=== PATIENT | female | born 1950 | race Caucasian/White ===

== ENCOUNTER 2023-09-21 14:29 | Emergency (ER) | payer MEDICARE, MEDICAID, SELFPAY ==
[2023-09-21] VITALS (7 sets, daily range): BP systolic 135–159; BP diastolic 61–80; PULSE 84–89; RESP 16–23; TEMP 36.6–36.9; O2SAT 96–99; BMI 38.0
--- NOTE | 2023-09-21 15:27 | EDS_ITS ---
HPI HPI - Female History of Present Illness Chief Complaint: Complaint Narrative Narrative: 72-year-old female presenting from [facility] with concern for UTI. Patient is a poor informant but her sister gives extensive history. She states she has had UTIs in the past. She has a suprapubic catheter. She states that typically if she gets urinary tract infection she stopped eating and gets confused but she has not noted any of this. Patient's sister also states that she has a long history of mental health issues and has been suicidal in the past. She is on aripiprazole and she has been stable. Patient's sister states that the [facility] noted she was confused but her sister states that she is at baseline. She states that she gets her suprapubic catheter changed regularly. She states that the last urinalysis showed some bacteria but she does not know all the results. [facility] Medical History SOB (shortness of breath) Stage 3 chronic kidney disease Chronic UTI Hypertension Home Medications ?Medication ?Instructions ?Recorded ?Last Taken ?Type amlodipine 5 mg tablet PO 12/06/19 Unknown History aripiprazole 5 mg tablet mg PO 12/06/19 Unknown History bupropion HCl 300 mg 24 hr tablet, mg PO 12/06/19 Unknown History extended release calcium carbonate ea PO 12/06/19 Unknown History cholecalciferol (vitamin D3) 25 PO 12/06/19 Unknown History mcg (1,000 unit) tablet conjugated estrogens 1.25 mg tablet mg PO 12/06/19 Unknown History duloxetine 60 mg capsule,delayed mg PO 12/06/19 Unknown History release lorazepam 0.5 mg tablet 0.25 mg PO 12/06/19 Unknown History medroxyprogesterone 10 mg tablet mg PO 12/06/19 Unknown History sodium bicarbonate 325 mg tablet ea PO 12/06/19 Unknown History trazodone 300 mg tablet 300 mg PO 12/06/19 Unknown History ciprofloxacin HCl 500 mg tablet 500 mg PO BID #10 tabs 09/21/23 Unknown Rx (Cipro) Allergy/AdvReac Type Severity Reaction Status Date / Time latex AdvReac rash Verified 09/21/23 14:38 Family History no significant family his Social History Smoking Status: Never smoker ROS ROS ED Constitutional Constitutional ED: Denies chills, fever(s) or sweats Eyes Eyes: Denies blurry vision or change in vision ENT ENT ED: Denies ear pain or sore throat Cardiovascular Cardiovascular: Denies chest pain, palpitations or racing heartbeat Respiratory/Chest Respiratory/Chest: Denies cough, dyspnea or sputum Gastrointestinal Gastrointestinal: Denies abdominal pain, constipation, diarrhea, nausea or vomiting Genitourinary Genitourinary ED: Denies dysuria, hematuria or urinary frequency Musculoskeletal Musculoskeletal: Denies arthralgias, myalgias or neck pain Integumentary Denies abscess, Abrasions or rash Neurologic Neurologic: Denies headache(s), paresthesias or weakness Psychiatric Psychiatric: Denies anxiety, depression, suicidal ideation or suicidal thoughts Endocrine Endocrinology: Denies polydipsia or polyuria EXAM Physical Exam Const Vital Signs: 09/21/23 14:30 09/21/23 15:33 09/21/23 16:00 Temperature 98.4 F 98 F 98.2 F Temperature Source Oral Temporal Temporal Pulse Rate 84 88 89 Respiratory Rate 16 19 H 18 Blood Pressure 152/80 H 159/79 H 159/68 H Blood Pressure Mean 104 105 98 Pulse Ox 98 98 98 Oxygen Delivery Method Room Air Room Air Room Air 09/21/23 16:30 Temperature Temperature Source Pulse Rate 89 Respiratory Rate 23 H Blood Pressure 148/71 H Blood Pressure Mean 96 Pulse Ox 98 Oxygen Delivery Method Room Air General Appearance ED: Negative for pallor HEENT Reports normocephalic Eyes PERRL and EOMs intact bilaterally Neck no lymphadenopathy and supple Resp normal respiratory effort and clear to auscultation bilaterally Auscultation: Negative for rales, rhonchi or wheezes Cardio regular rate and regular rhythm GI normal to inspection, nondistended, normoactive bowel sounds and non-distended Auscultation: normoactive bowel sounds Palpation: soft Narrative: Deferred Back/Spine no CVA tenderness Extremity normal to inspection General Extremety ED: Negative for edema or tenderness General Extremity: Negative for edema Neuro CN's II-XII intact bilaterally Sensorium / Orientation: alert Motor Exam: strength 5/5 throughout Psych mental status grossly normal Attitude: No agitated Skin no rashes or lesions noted and no wounds General Skin Exam: Negative for jaundice or pallor MDM MDM MDM Narrative Medical decision making narrative: Patient presenting with her sister for concern for UTI. Her sister states that she is at her baseline mentation. [facility] was more concerned and her sister. Vital signs stable and she is afebrile. Urinalysis was obtained and shows 100 leukocyte esterase, 2+ bacteria 3-5 white blood cells. I will send this for culture and patient will be started on Cipro. Discharged stable condition. Impression 1. UTI Lab Data Attestation: I reviewed the patient's lab results. Labs: Laboratory Results - last 24 hr 09/21/23 15:29 Urine Color Yellow Urine Clarity Sl. Cloudy Urine pH 7.0 Ur Specific [place] 1.005 Urine Protein Negative Urine Glucose (UA) Normal Urine Ketones Negative Urine Occult Blood 150 H Urine Nitrite Negative Urine Bilirubin Negative Urine Urobilinogen Normal Ur Leukocyte Esterase 100 H Urine RBC 0-5 SEEN Urine WBC 0-5 SEEN Ur Squamous Epith Cells 0 SEEN Urine Bacteria 2+ Urine Mucus 0 SEEN Discharge Plan Triage Chief Complaint: Complaint ED Provider: Adria Foote Dx/Rx/DC Orders Instructions: ED Cystitis Female Adult Prescriptions: New ciprofloxacin HCl [Cipro] 500 mg tablet 500 mg PO BID Qty: 10 0RF No Action duloxetine 60 mg capsule,delayed release(DR/EC) PO bupropion HCl 300 mg tablet extended release 24 hr PO aripiprazole 5 mg tablet PO conjugated estrogens 1.25 mg tablet PO amlodipine 5 mg tablet PO medroxyprogesterone 10 mg tablet PO lorazepam 0.5 mg tablet 0.25 mg PO Patient Comments: TAKE 1 TABLET BY MOUTH TWICE A DAY calcium carbonate 500 mg calcium (1,250 mg) tablet PO Patient Comments: TAKE 1 TABLET BY MOUTH EVERY MORNING cholecalciferol (vitamin D3) 25 mcg (1,000 unit) tablet PO trazodone 300 mg tablet 300 mg PO sodium bicarbonate 325 mg tablet PO Patient Comments: TAKE 1 TABLET BY MOUTH EVERY 12 HOURS Primary Care Provider: Wang Díaz Referrals: Wang Díaz MD [Primary Care Provider] - Print Language: Sammarinese Disposition Disposition: Home, Self Care
[2023-09-21 15:39] LABS: Mucous, Urine 0 SEEN /hpf (<or=2+); Squamous Epithelial Cells - UA 0 SEEN /hpf (5-10)
[2023-09-21 15:46] LABS: Color, Urine Yellow (Yellow); Glucose, Dipstick Normal (Normal); Ketone-Dipstick Negative (Negative); Leukocyte Esterase-Dipstick 100 /ul (Negative); Nitrite-Dipstick Negative (Negative); Occult Blood-Urine 150 /ul (Negative); Protein-Dipstick Negative (Negative); Specific Gravity, Urine 1.005 (1.002-1.030); Urine Bilirubin Dipstick Negative (Negative); Urine Clarity Sl. Cloudy (Clear); Urine Urobilinogen Normal (Normal)
[2023-09-21 15:56] LABS: Bacteria 2+ /hpf (None Seen); Red Blood Cells-Urine 0-5 SEEN /hpf (0-5); White Blood Cells 0-5 SEEN /hpf (0-5)
[2023-09-21] MEDS: Ciprofloxacin 500 MG Tablet PO (18:44)
[2023-09-21] MEDS: oxyCODONE 5 MG Tablet 10 MG PO (18:44)
== END 2023-09-21 21:15 | disposition home or self-care (01) ==
PROVIDERS: Emergency Provider Student in an Organized Health Care Education/Training Program; PCP Family Medicine; Visit Provider Student in an Organized Health Care Education/Training Program
DX: N39.0 Urinary tract infection, site not specified (principal); N18.30 Chronic kidney disease, stage 3 unspecified; I12.9 Hypertensive chronic kidney disease with stage 1 through stage 4 chronic kidney disease, or unspecified chronic kidney disease; Z87.440 Personal history of urinary (tract) infections
CPT/HCPCS: 81001; 99282

== ENCOUNTER 2024-06-04 10:00 | Inpatient (IN) | payer MEDICARE, MEDICAID, SELFPAY ==
[2024-06-04] VITALS (14 sets, daily range): BP systolic 128–143; BP diastolic 45–60; PULSE 90–95; RESP 14–27; TEMP 36.3–37.1; O2SAT 89–98; BMI 43.7; BMI 41.5
--- NOTE | 2024-06-04 10:14 | EKG12_ITS ---
Test Reason : Blood Pressure : */* mmHG Vent. Rate : 93 BPM Atrial Rate : 93 BPM P-R Int : 138 ms QRS Dur : 90 ms QT Int : 378 ms P-R-T Axes : 53 64 51 degrees QTcB Int : 469 ms Normal sinus rhythm Nonspecific T wave abnormality Abnormal ECG Confirmed by AISHWARYA LAM, DEX ([id number]), graphics editor CHRISTIANA GUTIERREZ ([id number]) on 06/05/2024 8:35:50 AM Referred By: Confirmed By: DEX NEFF MD
--- NOTE | 2024-06-04 10:27 | EX.ED.DYSGE1 ---
HPI History of Present Illness Chief Complaint: Nausea/Vomiting Informant: patient, EMS and SNF Narrative Narrative: 73-year-old female from nursing facility presenting with a report of vomiting and fever. Patient states that she has been sick since last week but cannot tell me in what way she has been sick. half-way reports vomiting as well as a fever this morning. She states that she was not given anything for the fever. Did not have a fever upon arrival here in the emergency department. Patient states that she has had a cough. She has chronic indwelling Cifuentes and sees Dr. Haley in [place] for urology. She states that she typically utilizes a wheelchair is a 1-2 person assist. She denies any diarrhea. However she cannot tell me when her last bowel movement was. She tells me that she does not typically wear oxygen. She was noted to be 89% on room air per nursing. [facility] Medical History History of falling Anxiety disorder, unspecified Bipolar disorder, current episode manic without psychotic features, unspecified Major depressive disorder, single episode, mild Neuromuscular dysfunction of bladder, unspecified Noninfective gastroenteritis and colitis, unspecified Osteoarthritis of knee, unspecified Secondary hyperparathyroidism of renal origin Vitamin D deficiency, unspecified Localized edema Chronic kidney disease, stage 3b SOB (shortness of breath) Stage 3 chronic kidney disease Chronic UTI Hypertension Home Medications ?Medication ?Instructions ?Recorded ?Last Taken ?Type amlodipine 5 mg tablet 5 mg PO DAILY HYPERTENSION 12/06/19 Unknown History aripiprazole 5 mg tablet 5 mg PO DAILY BIPOLAR 12/06/19 Unknown History bupropion HCl 300 mg 24 hr tablet, 300 mg PO DAILY DEPRESSION 12/06/19 Unknown History extended release cholecalciferol (vitamin D3) 25 25 mcg PO DAILY SUPPLEMENT 12/06/19 Unknown History mcg (1,000 unit) tablet lorazepam 0.5 mg tablet 0.5 mg PO BID 12/06/19 Unknown History medroxyprogesterone 10 mg tablet 10 mg PO DAILY 12/06/19 Unknown History sodium bicarbonate 325 mg tablet 325 mg PO DAILY SUPPLEMENT 12/06/19 Unknown History acetaminophen 500 mg tablet 1,000 mg PO Q6H PRN PAIN 1-5 06/04/24 Unknown History benzonatate 100 mg capsule 100 mg PO TID 06/04/24 Unknown History bisacodyl 10 mg rectal suppository 10 mg LA DAILY PRN constipation 06/04/24 Unknown History buprenorphine 7.5 mcg/hour weekly 1 patch topical MO 06/04/24 Unknown History transdermal patch calcium 500 mg (as 2 tab PO DAILY 06/04/24 Unknown History carbonate)-vitamin D3 5 mcg (200 unit) tablet (Oyster Shell Calcium-Vitamin D3) carbamide peroxide 6.5 % ear drops 5 drp EACH EAR DAILY PRN EAR WAX 06/04/24 Unknown History (Clearcanal Earwax Softener) BUILD UP cranberry fruit 450 mg tablet 450 mg PO DAILY SUPPLEMENT 06/04/24 Unknown History (cranberry) duloxetine 20 mg capsule,delayed 20 mg PO DAILY 06/04/24 Unknown History release famotidine 40 mg tablet 40 mg PO DAILY 06/04/24 Unknown History hydrocortisone 1 % topical cream 1 applic topical BID PRN BILATERAL 06/04/24 Unknown History (Ala-Dima) KNEE PAIN magnesium hydroxide 400 mg/5 mL 30 ml PO DAILY PRN constipation 06/04/24 Unknown History oral suspension (Dulcolax (magnesium hydroxide)) mineral oil (Fleet Mineral Oil 118 ml LA DAILY PRN constipation 06/04/24 Unknown History enema) nystatin 100,000 unit/gram topical 1 applic topical TID SKIN 06/04/24 Unknown History cream IRRITATION nystatin 100,000 unit/gram topical 1 applic topical TID SKIN 06/04/24 Unknown History powder (Nyamyc) IRRITATION oxycodone 10 mg tablet 10 mg PO Q6H PRN moderate TO 06/04/24 Unknown History SEVERE pain polyethylene glycol 3350 17 17 g PO DAILY PRN constipation 06/04/24 Unknown History gram/dose oral powder (ClearLax) trazodone 50 mg tablet 75 mg PO DAILY MAJOR DEPRESSIVE 06/04/24 Unknown History DISORDER Allergy/AdvReac Type Severity Reaction Status Date / Time latex AdvReac rash Verified 06/04/24 10:08 Social History Smoking Status: Never smoker ROS ROS ED Constitutional Constitutional ED: Reports chills and fever(s); Denies weight loss Eyes Eyes: Denies change in vision or diplopia ENT ENT ED: Denies ear pain, rhinorrhea or sore throat Cardiovascular Cardiovascular: Denies chest pain, orthopnea, palpitations or racing heartbeat Respiratory/Chest Respiratory/Chest: Reports cough; Denies dyspnea or orthopnea Gastrointestinal Gastrointestinal: Reports nausea and vomiting; Denies abdominal pain or diarrhea Genitourinary Genitourinary ED: Denies dysuria, hematuria or urinary frequency Musculoskeletal Musculoskeletal: Denies arthralgias, back pain, myalgias or neck pain Integumentary Denies abscess or rash Neurologic Neurologic: Denies headache(s) or weakness Psychiatric Psychiatric: Denies anxiety, depression, suicidal ideation or suicidal thoughts Endocrine Endocrinology: Denies polydipsia, polyphagia or polyuria Allergic/Immunologic Allergic/Immunologic ED: Denies mouth swelling, tongue swelling or urticaria EXAM Physical Exam Const Vital Signs: 06/04/24 10:00 06/04/24 10:00 06/04/24 10:05 Temperature 98.7 F 98.7 F Temperature Source Oral Oral Pulse Rate 95 95 Respiratory Rate 27 H 27 H Respiratory Pattern Blood Pressure 143/60 H 143/60 H Blood Pressure Mean 87 87 Pulse Ox 89 93 89 Oxygen Delivery Method Room Air Nasal Cannula Room Air Oxygen Flow Rate (L/min) 3 06/04/24 10:13 06/04/24 10:14 06/04/24 11:05 Temperature 98.1 F Temperature Source Oral Pulse Rate 94 Respiratory Rate 14 Respiratory Pattern Tachypnea Blood Pressure 137/59 H Blood Pressure Mean 85 Pulse Ox 93 92 Oxygen Delivery Method Nasal Cannula Nasal Cannula Oxygen Flow Rate (L/min) 2 2 06/04/24 11:20 06/04/24 11:20 06/04/24 12:05 Temperature 98.2 F Temperature Source Oral Pulse Rate 90 94 Respiratory Rate 14 19 H Respiratory Pattern Blood Pressure 128/47 H Blood Pressure Mean 74 Pulse Ox 95 89 Oxygen Delivery Method Nasal Cannula Nasal Cannula Oxygen Flow Rate (L/min) 2 3 06/04/24 12:59 06/04/24 13:00 Temperature 98.2 F Temperature Source Oral Pulse Rate 95 Respiratory Rate 17 Respiratory Pattern Blood Pressure 135/45 H Blood Pressure Mean 75 Pulse Ox 94 94 Oxygen Delivery Method Nasal Cannula Nasal Cannula Oxygen Flow Rate (L/min) 4 2 Positive well nourished, well developed and obese General Appearance ED: well developed and NAD Nutritional Appearance: obese HEENT Reports normocephalic, head/scalp atraumatic and moist mucous membranes Eyes PERRL and EOMs intact bilaterally Neck no lymphadenopathy, supple and no JVD Resp normal respiratory effort Resp Narrative: Rhonchorous cough Auscultation: rhonchi lower bilaterally Cardio regular rate, regular rhythm and no murmurs GI normal to inspection, nondistended, normoactive bowel sounds and non-tender Palpation: soft Narrative: There is a chronic indwelling Cifuentes. There is significant sediment along the tubing and in the back. Back/Spine no CVA tenderness and normal ROM Extremity General Extremety ED: Yes edema General Extremity: edema Neuro oriented x3 and CN's II-XII intact bilaterally Sensorium / Orientation: alert Motor Exam: strength 5/5 throughout Psych mental status grossly normal Mood & Affect: Negative for depressed or tearful Skin no rashes or lesions noted and no wounds Sepsis Attestation Sepsis Alert: Yes Sepsis Attestation: Sepsis Ruled Out MDM MDM MDM Narrative Medical decision making narrative: Differential diagnosis includes but not limited to pneumonia viral syndrome congestive heart failure oral effusion sepsis hypoxia dehydration electrolyte imbalance acute kidney injury Patient's white count is elevated 27.9 hemoglobin 13.7 platelet count of 269. INR is 1.2 patient's creatinine 1.28 glucose 128 lactic acid normal at 1.4 total bilirubin 1.34 otherwise normal LFTs troponin T is 20 urinalysis 10-25 squamous cells 50-100 white cells 3+ bacteria 3+ amorphous sediment Nitrate positive. Patient received supplemental oxygen blood and urine cultures were sent. She is influenza A positive. She received IV fluids as well as a breathing treatment and Rocephin and azithromycin were also administered. My independent interpretation of the chest x-ray is right sided infiltrate. This was read by radiology as a possible cavitary lesion. CTA of the chest was obtained which does not demonstrate an obvious pulmonary embolism but large right-sided infiltrate was noted as well as a lesion in the right midlung. Urinary strep pneumo antigen is positive. Plan of care will be discussed the case with the hospitalist for admission. History & Record Review Discussion w/independent historian: Patient Additional record(s) reviewed:: Prior labs Lab Data Attestation: I reviewed the patient's lab results. Labs: Laboratory Results - last 24 hr 06/04/24 06/04/24 06/04/24 10:20 10:50 12:49 WBC 27.9 H RBC 4.41 Hgb 13.7 Hct 40.3 MCV 91.4 MCH 31.1 MCHC 34.0 RDW Std Deviation 48.1 H RDW Coeff of Ge 14.2 Plt Count 269 MPV 9.5 Immature Gran % (Auto) 3.500 H Neut % (Auto) 89.3 H Lymph % (Auto) 4.5 L [place] % (Auto) 1.8 Eos % (Auto) 0.4 Baso % (Auto) 0.5 Absolute Neuts (auto) 24.9 H Absolute Lymphs (auto) 1.26 Nucleated RBC % 0 Differential Comment COMMENT PT 15.5 H INR 1.2 APTT 25.9 Sodium 136 Potassium 3.7 Chloride 104 Carbon Dioxide 20.4 L Anion Gap 12 BUN 13 Creatinine 1.28 H Estim Creat Clear Calc 46.70 L Est GFR (MDRD) Non-Af 45 L BUN/Creatinine Ratio 9.8 L Glucose 128 H Lactic Acid 1.4 Calcium 9.0 Total Bilirubin 1.34 H AST 25 ALT 13 Alkaline Phosphatase 99 Troponin T High Sens 20 H Troponin T Hi Sens 2 Hr 19 H Total Protein 7.3 Albumin 3.6 Globulin 3.7 Albumin/Globulin Ratio 1.0 Urine Color Yellow Urine Clarity Turbid Urine pH 9.0 Ur Specific [place] 1.015 Urine Protein 100 H Urine Glucose (UA) Normal Urine Ketones Negative Urine Occult Blood 50 H Urine Nitrite Positive H Urine Bilirubin Negative Urine Urobilinogen 1 H Ur Leukocyte Esterase 500 H Urine RBC 0 SEEN Urine WBC 50-100 SEEN Ur Squamous Epith Cells 10-25 SEEN Triple Phos Crystals 2+ Amorphous Sediment 3+ Urine Bacteria 3+ Urine Mucus 0 SEEN Radiography Diagnostic Testing: Clinical Impression(s) from Imaging Studies Chest X-Ray 06/04/24 10:50 IMPRESSION: Cavitary lesion in the right mid lung. Reading Location: [facility] Chest CTA 06/04/24 11:39 IMPRESSION: Large right lower lobe pneumonia is smaller satellite lesion in the right midlung Reading Location: [facility] EKG Initial EKG: Attestation: I personally reviewed and interpreted this EKG as follows: Comments: Normal sinus rhythm ventricular rate of 93 bpm Management Discussion w/another healthcare provider: Hospitalist (Dr Muniz) Discharge Plan Dx/Rx/DC Orders Clinical Impression: Pneumonia, Acute hypoxemic respiratory failure, Influenza A, Pulmonary lesion, right Disposition Disposition: Acute Care Hospital [facility]
[2024-06-04 10:35] LABS: Absolute Lymphocyte Count 1.26 X10^3/uL (0.83-4.51); Absolute Neutrophil Count 24.9 X10^3/uL (2.0-7.7); Basophil# 0.14 X10^3/uL; Basophil% 0.5 % (0-1); Eosinophil# 0.12 X10^3/uL; Eosinophils% 0.4 % (0-5); Hematocrit 40.3 % (37-47); Hemoglobin 13.7 g/dL (12.0-15.0); Lymphocyte # 1.26 X10^3/ul (0.83-4.51); Lymphocyte % 4.5 % (19-41); Mean Corpuscular Hgb 31.1 pg (27.0-32.0); Mean Corpuscular Volume 91.4 fL (81-99); Mean Platelet Vol. 9.5 fl (6.2-12.0); Monocyte# 0.51 X10^3/uL; Monocyte% 1.8 % (0-10); NRBC Flagged by Analyzer 0 % (0-5); Neutrophil # 24.86 X10^3/uL (2.7-7.7); Neutrophil % 89.3 % (47-70); POSITIVE DIFFERENTIAL YES; POSITIVE MORPHOLOGY YES; Platelet Count 269 K/mm3 (150-450); RBC Distribution Width CV 14.2 % (11.6-14.6); RBC Distribution Width SD 48.1 fl (35.1-43.9); Red Blood Count 4.41 M/mm3 (4.2-5.4); White Blood Count 27.9 K/mm3 (4.4-11.0)
[2024-06-04] MEDS: 0.9% Normal Saline (1000mL) 1,000 ML 999 ML IV (10:40)
[2024-06-04] MEDS: 0.9% Normal Saline (1000mL) 1,000 ML 150 ML IV (10:40)
[2024-06-04 10:42] LABS: Differential Indicated SCAN CRITERIA MET
--- NOTE | 2024-06-04 10:50 | RAD_ITS ---
PROCEDURE: CHEST 1 VIEW (PORTABLE) 06/04/2024 REASON FOR EXAM: FEVER AND COUGH TECHNIQUE: Frontal view of the chest. COMPARISON: None FINDINGS: Hardware: None Heart: Normal heart size Lungs: Focal airspace consolidation seen. Looks like a cavitary cystic lesion is present in the right mid lung differential diagnostic possibilities include bronchogenic cancer, lymphoma, metastasis, the types of infectious processes and abscesses, mycobacterial, fungus and parasites. Bones: Unremarkable Other: RAD/Chest 1 View (Portable) IMPRESSION: Cavitary lesion in the right mid lung. Reading [facility]
[2024-06-04 11:11] LABS: Mucous, Urine 0 SEEN /hpf (<or=2+); Red Blood Cells-Urine 0 SEEN /hpf (0-5)
[2024-06-04 11:16] LABS: Color, Urine Yellow (Yellow); Glucose, Dipstick Normal (Normal); Ketone-Dipstick Negative (Negative); Leukocyte Esterase-Dipstick 500 /ul (Negative); Nitrite-Dipstick Positive (Negative); Occult Blood-Urine 50 /ul (Negative); Protein-Dipstick 100 mg/dl (Negative); Specific Gravity, Urine 1.015 (1.002-1.030); Urine Bilirubin Dipstick Negative (Negative); Urine Clarity Turbid (Clear); Urine Urobilinogen 1 mg/dl (Normal)
[2024-06-04 11:20] LABS: Lactic Acid 1.4 mmol/L (0.0-2.0)
[2024-06-04 11:21] LABS: AST(SGOT) 25 U/L (<=31); Alanine Aminotransfer ALT/SGPT 13 U/L (<=34); Albumin, Serum 3.6 g/dL (3.4-4.8); Alkaline Phosphatase 99 U/L (35-104); Anion Gap 12 (5-15); BUN 13 mg/dL (4-19); BUN/Creat Ratio 9.8 RATIO (10-20); Carbon Dioxide 20.4 mmol/L (21.0-32.0); Chloride 104 mmol/L (98-108); Creatinine, Serum 1.28 mg/dL (0.70-1.20); EST Glomerular Filtration Rate 45 (>60); Globulin 3.7 g/dL (2.2-4.2); Glucose 128 mg/dL (70-99); Potassium 3.7 mmol/L (3.3-5.1); Protein, Total 7.3 g/dL (5.9-8.4); Sodium Level 136 mmol/L (133-145); Total Bilirubin 1.34 mg/dL (0.00-1.30); Troponin T High Sensitivity 20 ng/L (<=14)
[2024-06-04 11:26] LABS: International Normalized Ratio 1.2; Prothrombin Time (Protime)PT. 15.5 SECONDS (11.7-14.9)
[2024-06-04 11:28] LABS: Bacteria 3+ /hpf (None Seen); White Blood Cells 50-100 SEEN /hpf (0-5)
[2024-06-04 11:28] LABS: Partial Thromboplast Time 25.9 Seconds (24.1-36.2)
[2024-06-04 11:30] LABS: Squamous Epithelial Cells - UA 10-25 SEEN /hpf (5-10); Triple Phosphate Crystals Ur 2+ /hpf (<or=1+)
[2024-06-04 11:31] LABS: Amorphous Sediment 3+
[2024-06-04] MEDS: Ipratropium/Albuterol Sulfate 3 ML AMPUL.NEB INHALATION ×3 (11:34→23:50)
--- NOTE | 2024-06-04 11:39 | CT_ITS ---
PROCEDURE: CTA CHEST W/WO CONTRAST 06/04/2024 REASON FOR EXAM: PULMONARY EMBOLISM/CAVITARY LESION (R) TECHNIQUE: CTA imaging of the abdomen and pelvis with intravenous contrast. Coronal and Sagittal reconstruction series were provided. 3D, 3D post processing, 3D reconstructions, Maximum intensity projection (MIPs) Volume rendering and Shaded surface rendering was provided. CONTRAST: Isovue 370 VOLUME: 100mL IV One or more dose reduction techniques were used (e.g., Automated exposure control, adjustment of the mA and/or kV according to patient size, use of iterative reconstruction technique). RADIATION DOSE SUMMARY: CTDlvol: 10.29 mGy DLP: 441.60 mGycm COMPARISON: Chest radiograph 06/05/2019 FINDINGS: Large right lower lobe consolidating pneumonia with smaller satellite mid right lung extension. The pattern of airspace disease does not suggest a cavitary lesion which may have been suggested on the plain radiograph Heart and great vessels are unremarkable. No PE. No pleural effusion. No pneumothorax. Other Findings: Partially imaged upper abdominal structures demonstrate no acute pathology CT/CTA Chest W/WO Contrast IMPRESSION: Large right lower lobe pneumonia is smaller satellite lesion in the right midlu ng Reading Location[facility]
[2024-06-04] MEDS: Azithromycin 500 MG in 0.9% Normal Saline (250mL Bag) 250 ML 255 MG IV (11:45)
[2024-06-04 13:22] LABS: Troponin T High Sens 2 HR 19 ng/L (<=14)
[2024-06-04] MEDS: Ceftriaxone 1 GM/50 ML BAG IV (13:42)
--- NOTE | 2024-06-04 13:43 | HP.PCM.HOS_ITS ---
HPI - General General Date of Admission: 06/04/24 Date of Service: 06/04/24 Chief Complaint: N/V/fever HPI Narrative YENI BROOKS, is a 73 y/o F with a history of anxiety, bipolar disorder, chronic indwelling Cifuentes catheter who presented [facility] ED from long-term 06/04/2024 for vomiting and fever. This past week patient has not been feeling well but per long-term this morning she vomited and had a fever 101 prompting them to bring her to the ED. In the ED patient was 89% and started on 2 L O2 and did reports she has been having a cough. Patient afebrile in the ED with blood pressure stable, respiratory rate initially 27. CTA showed large right lower lobe pneumonia with a smaller satellite lesion in the right midlung. UA also appeared potentially infectious and will consult count 27.9. Patient given IV fluids, Rocephin, azithromycin, and a DuoNeb and hospitalist contacted for admission. Patient evaluated bedside. She is a somewhat poor historian but does report a history of fever today and had nausea and then vomiting after breakfast. Reports shortness of breath and cough for a while but does noted that worse recently though cannot say exactly when. When asked if she had abdominal pain or chest pain she said yes but cannot further characterize that and had some generalized pain complaints, clarified that patient hurt all over and not necessarily discretely in these different places [facility] Medical History History of falling Anxiety disorder, unspecified Bipolar disorder, current episode manic without psychotic features, unspecified Major depressive disorder, single episode, mild Neuromuscular dysfunction of bladder, unspecified Noninfective gastroenteritis and colitis, unspecified Osteoarthritis of knee, unspecified Secondary hyperparathyroidism of renal origin Vitamin D deficiency, unspecified Localized edema Chronic kidney disease, stage 3b SOB (shortness of breath) Stage 3 chronic kidney disease Chronic UTI Hypertension Home Medications ?Medication ?Instructions ?Recorded ?Last Taken ?Type amlodipine 5 mg tablet 5 mg PO DAILY HYPERTENSION 1 Unknown History aripiprazole 5 mg tablet 5 mg PO DAILY BIPOLAR Unknown History bupropion HCl 300 mg 24 hr tablet, 300 mg PO DAILY DEP RESSION 12/06/19 Unknown History extended release cholecalciferol (vitamin D3) 25 25 mcg PO DAILY SUPPLE MENT 12/06/19 Unknown History mcg (1,000 unit) tablet lorazepam 0.5 mg tablet 0.5 mg PO BID 12/06/19 Unkno wn History medroxyprogesterone 10 mg tablet 10 mg PO DAILY Unknown History sodium bicarbonate 325 mg tablet 325 mg PO DAILY SUPPL EMENT 12/06/19 Unknown History acetaminophen 500 mg tablet 1,000 mg PO Q6H PRN PAIN 1 -5 06/04/24 Unknown History benzonatate 100 mg capsule 100 mg PO TID 06/04/24 Unkn own History bisacodyl 10 mg rectal suppository 10 mg SC DAILY PRN constipation 06/04/24 Unknown History buprenorphine 7.5 mcg/hour weekly 1 patch topical MO 0 06/04/24 Unknown History transdermal patch calcium 500 mg (as 2 tab PO DAILY 06/04/24 Unkn own History carbonate)-vitamin D3 5 mcg (200 unit) tablet (Oyster Shell Calcium-Vitamin D3) carbamide peroxide 6.5 % ear drops 5 drp EACH EAR OZ Y PRN EAR WAX 06/04/24 Unknown History (Clearcanal Earwax Softener) BUILD UP cranberry fruit 450 mg tablet 450 mg PO DAILY SUPPLEME NT 06/04/24 Unknown History (cranberry) duloxetine 20 mg capsule,delayed 20 mg PO DAILY Unknown History release famotidine 40 mg tablet 40 mg PO DAILY 06/04/24 Unkn own History hydrocortisone 1 % topical cream 1 applic topical BID PRN BILATERAL 06/04/24 Unknown History (Ala-Dima) KNEE PAIN magnesium hydroxide 400 mg/5 mL 30 ml PO DAILY PRN con stipation 06/04/24 Unknown History oral suspension (Dulcolax (magnesium hydroxide)) mineral oil (Fleet Mineral Oil 118 ml SC DAILY PRN con stipation 06/04/24 Unknown History enema) nystatin 100,000 unit/gram topical 1 applic topical TI D SKIN 06/04/24 Unknown History cream IRRITATION nystatin 100,000 unit/gram topical 1 applic topical TI D SKIN 06/04/24 Unknown History powder (Nyamyc) IRRITATION oxycodone 10 mg tablet 10 mg PO Q6H PRN moderate TO 06/04/24 Unknown History SEVERE pain polyethylene glycol 3350 17 17 g PO DAILY PRN constipa tion 06/04/24 Unknown History gram/dose oral powder (ClearLax) trazodone 50 mg tablet 75 mg PO DAILY MAJOR DEPRESS LENORE 06/04/24 Unknown History DISORDER Allergy/AdvReac Type Severity Reaction Status Date / Time latex AdvReac rash Verified 06/04/24 10:08 Social History Smoking Status: Never smoker ROS ROS Narrative General: Fever earlier today HENT: Stuffy nose little bit of headache, denies sore throat EYES: Denies changes in vision Resp: Cough and shortness of breath abdomen worsening Cardiac: Possibly some chest pain but seems to be part of her overall feeling achy GI: Possibly some abdominal pain but very nonspecific and patient unable to characterize this further, denies changes in bowel, nausea earlier today with vomiting after breakfast : Has a chronic indwelling Cifuentes Extremity: Denies swelling MSK: Feels little bit weak overall Neuro: Denies any numbness/tingling Heme: Denies any bleeding or bruising Skin: Denies rashes Psychiatric: No complaints voiced Vital Signs Vital Signs Vital Signs: 06/04/24 10:00 06/04/24 10:00 06/04/24 10:05 Temperature 98.7 F 98.7 F Temperature Source Oral Oral Pulse Rate 95 95 Respiratory Rate 27 H 27 H Respiratory Pattern Blood Pressure 143/60 H 143/60 H Blood Pressure Mean 87 87 Pulse Ox 89 93 89 Oxygen Delivery Method Room Air Nasal Cannula Room Air Oxygen Flow Rate (L/min) 3 06/04/24 10:13 06/04/24 10:14 06/04/24 11:05 Temperature 98.1 F Temperature Source Oral Pulse Rate 94 Respiratory Rate 14 Respiratory Pattern Tachypnea Blood Pressure 137/59 H Blood Pressure Mean 85 Pulse Ox 93 92 Oxygen Delivery Method Nasal Cannula Nasal Cannula Oxygen Flow Rate (L/min) 2 2 06/04/24 11:20 06/04/24 11:20 06/04/24 12:05 Temperature 98.2 F Temperature Source Oral Pulse Rate 90 94 Respiratory Rate 14 19 H Respiratory Pattern Blood Pressure 128/47 H Blood Pressure Mean 74 Pulse Ox 95 89 Oxygen Delivery Method Nasal Cannula Nasal Cannula Oxygen Flow Rate (L/min) 2 3 06/04/24 12:59 06/04/24 13:00 06/04/24 13:39 Temperature 98.2 F 98.2 F Temperature Source Oral Pulse Rate 95 95 Respiratory Rate 17 17 Respiratory Pattern Blood Pressure 135/45 H 135/45 H Blood Pressure Mean 75 75 Pulse Ox 94 94 94 Oxygen Delivery Method Nasal Cannula Nasal Cannula Oxygen Flow Rate (L/min) 4 2 Weight Weight: 108.3 kg Body Mass Index (BMI) 43.7 Physical Exam Narrative General: Alert, oriented, no apparent distress HEENT: Atraumatic, normocephalic Eyes: Anicteric, seems to have some chronic eye deviation Neck: Supple Respiratory: Coarse especially on the right side with some very faint wheezes scattered, normal respiratory effort Cardiovascular: Regular rate and rhythm GI: Soft, patient reports some tenderness in various areas but is not reproducible and there is no rebound, guarding, or rigidity Extremities: No edema Musculoskeletal: Moving all extremities Neuro: No overt focal neurological deficits Skin: No rashes appreciated Psych: Cooperative Results Lab / Micro Data 06/04/24 10:20 06/04/24 10:20 Labs: Laboratory Results - last 24 hr 06/04/24 10:20: WBC 27.9 H, RBC 4.41, Hgb 13.7, Hct 40.3, MCV 91.4, MCH 31.1, MCHC 34.0, RDW Std Deviation 48.1 H, RDW Coeff of Ge 14.2, Plt Count 269, MPV 9.5, Immature Gran % (Auto) 3.500 H, Neut % (Auto) 89.3 H, Lymph % (Auto) 4.5 L, [place] % (Auto) 1.8, Eos % (Auto) 0.4, Baso % (Auto) 0.5, Absolute Neuts (auto) 24.9 H, Absolute Lymphs (auto) 1.26, Nucleated RBC % 0, Differential Comment COMMENT, PT 15.5 H, INR 1.2, APTT 25.9, Sodium 136, Potassium 3.7, Chloride 104, Carbon Dioxide 20.4 L, Anion Gap 12, BUN 13, Creatinine 1.28 H, Estim Creat Clear Calc 46.70 L, Est GFR (MDRD) Non-Af 45 L, BUN/Creatinine Ratio 9.8 L, G lucose 128 H, Lactic Acid 1.4, Calcium 9.0, Total Bilirubin 1.34 H, AST 25, ALT 13, Alkaline Phosphatase 99, Troponin T High Sens 20 H, Total Protein 7.3, Albumin 3.6, Globulin 3.7, Albumin/Globulin Ratio 1.0 06/04/24 10:50: Urine Color Yellow, Urine Clarity Turbid, Urine pH 9.0, Ur Specific [place] 1.015, Urine Protein 100 H, Urine Glucose (UA) Normal, Urine Ketones Negative, Urine Occult Blood 50 H, Urine Nitrite Positive H, Urine Bilirubin Negative, Urine Urobilinogen 1 H, Ur Leukocyte Esterase 500 H, Urine RBC 0 SEEN, Urine WBC 50-100 SEEN, Ur Squamous Epith Cells 10-25 SEEN, Triple Phos Crystals 2+, Amorphous Sediment 3+, Urine Bacteria 3+, Urine Mucus 0 SEEN 06/04/24 12:49: Troponin T Hi Sens 2 Hr 19 H Micro: Microbiology 06/04/24 10:50 Urine Catheter - Cifuentes Legionella Antigen - Final 06/04/24 10:50 Urine Catheter - Cifuentes Streptococcus pneumoniae Antigen (M - Final Streptococcus pneumonia Ag 06/04/24 10:22 Mucosa - Nose SARS-CoV-2, Influenza & RSV (PCR) - Final Influenzae A Imaging Radiology Impression Chest X-Ray 06/04/24 10:50 IMPRESSION: Cavitary lesion in the right mid lung. Reading Location: [facility] Chest CTA 06/04/24 11:39 IMPRESSION: Large right lower lobe pneumonia is smaller satellite lesion in the right midlung Reading Location: [facility] Assessment & Plan Assessment/Plan (1) Pneumonia: PLAN: Plan # Hypoxia secondary community-acquired pneumonia secondary to pneumococcal pneumonia and influenza A -Patient 89% at rest requiring 2 L of O2 -Imaging: CTA with a large right lower lobe pneumonia -DuoNebs and as needed albuterol -Sputum culture, COVID/flu/RSV panel positive for influenza A -Urine antigens negative for Legionella but positive for pneumococcal pneumonia -Mucinex, I/S -Rocephin and azithromycin # Abnormal urinalysis -UA abnormal, patient has history of chronic indwelling Cifuentes catheter -Does have urine culture pending -Patient be covered with Rocephin as above, can follow culture # CKD stage III b -No previous values available in our system however per history does have history of CKD -Avoid nephrotoxic agents -Daily BMPs # Bipolar disorder and anxiety -Continue home medications #Hypertension -Continue amlodipine #Chronic pain -Patient with buprenorphine patch -Also gets oxycodone every 6 as needed based on patient's home med reconciliation so we will continue this #GERD -Continue famotidine #Morbid obesity -BMI documented as 43.7 kg/m? at time of admission -Complicates treatment, prognosis, outcomes -Recommend weight loss and lifestyle changes #DVT ppx: Lovenox subcu Mary Muniz MD Charges/Coding Visit Charges Inpatient E&M: 26630 Init Hosp L2
[2024-06-04] MEDS: 0.9% Normal Saline (1000mL) 1,000 ML 100 ML IV (14:53)
[2024-06-04 15:16] LABS: Troponin T High Sens 4 HR 19 ng/L (<=14)
[2024-06-04] MEDS: Buprenorphine 5 MCG PATCH.TDWK 1 PATCH TD (17:18)
[2024-06-04] MEDS: guaiFENesin 1,200 MG Tablet 1200 MG PO (22:23)
[2024-06-04] MEDS: LORazepam 0.5 MG Tablet PO (22:23)
[2024-06-05] VITALS (13 sets, daily range): BP systolic 110–151; BP diastolic 45–76; PULSE 88–95; RESP 16–24; TEMP 36.6–37.4; O2SAT 94–99
[2024-06-05] MEDS: Ipratropium/Albuterol Sulfate 3 ML AMPUL.NEB INHALATION ×6 (04:08→23:57)
[2024-06-05 06:10] LABS: Hematocrit 34.5 % (37-47); Hemoglobin 11.2 g/dL (12.0-15.0); Mean Corp Hgb Conc 32.5 g/dL (32-36); Mean Corpuscular Hgb 30.3 pg (27.0-32.0); Mean Corpuscular Volume 93.2 fL (81-99); Mean Platelet Vol. 9.9 fl (6.2-12.0); POSITIVE COUNT YES; POSITIVE MORPHOLOGY YES; Platelet Count 249 K/mm3 (150-450); RBC Distribution Width CV 14.5 % (11.6-14.6); RBC Distribution Width SD 49.8 fl (35.1-43.9)
[2024-06-05 06:28] LABS: Anion Gap 11 (5-15); BUN 14 mg/dL (4-19); BUN/Creat Ratio 11.4 RATIO (10-20); Calcium,Total 8.5 mg/dL (7.6-11.0); Carbon Dioxide 19.2 mmol/L (21.0-32.0); Chloride 106 mmol/L (98-108); Creatinine, Serum 1.18 mg/dL (0.70-1.20); EST Glomerular Filtration Rate 49 (>60); Estimated Creatinine Clearance 49.22 ml/min (50-250); Glucose 112 mg/dL (70-99); Potassium 3.4 mmol/L (3.3-5.1); Sodium Level 136 mmol/L (133-145)
[2024-06-05 06:30] LABS: Differential Indicated MANUAL DIFF
[2024-06-05 07:13] LABS: Lymphocyte 6 % (19-41); Metamyelocyte 1 % (0-1); Monocyte 3 % (0-10); Neutrophil-Band 9 % (0-5); Neutrophil-Segmented 81 % (47-70); Platelet Estimate ADEQUATE (ADEQ); Total Cells Counted 100 (MANUAL DIFF)
[2024-06-05 07:14] LABS: Absolute Neutrophil Count 20.7 X10^3/uL (2.0-7.7); Red Cell Morphology NORM C+C NORMAL (NORM C&C)
[2024-06-05 07:15] LABS: Absolute Lymphocyte Count 1.38 X10^3/uL (0.83-4.51)
--- NOTE | 2024-06-05 08:08 | PCM.PN.HOSP ---
Reason for Visit Reason for Visit: Diagnoses Pneumonia, unspecified organism (06/04/24) Subjective Subjective Patient is a 73-year-old lady resident at an extended care facility who was sent to the emergency department with nausea vomiting as well as fever patient was found to be hypoxic on admission subsequent evaluation revealed community-acquired pneumonia and influenza A admitted to a monitored bed for subsequent management Objective Data Objective Data Vital Signs: Vital Signs Temp Pulse Resp BP Pulse Ox O2 Del Method O2 Flow Rate 98 F 95 24 H 145/64 H 95 Nasal Cannula 4 06/05/24 04:00 06/05/24 04:09 06/05/24 04:09 06/05/24 04:00 06/05/24 04:11 06/05/24 04:11 06/05/24 04:11 Oxygen Flow Rate (L/min) 4 Oxygen Delivery Method Nasal Cannula Weight: 103.1 kg Body Mass Index (BMI) 41.5 Intake & Output: Intake and Output for Last 24 Hours 06/03/24 06/04/24 06/05/24 23:59 23:59 23:59 Intake Total 2897.5 / 2897.5 1000 / 1000 Output Total 1250 / 1250 600 / 600 Balance 1647.5 / 1647.5 400 / 400 Lab / Micro Data 06/05/24 05:39 06/05/24 05:39 Labs: Laboratory Results - last 24 hr 06/04/24 10:20: WBC 27.9 H, RBC 4.41, Hgb 13.7, Hct 40.3, MCV 91.4, MCH 31.1, MCHC 34.0, RDW Std Deviation 48.1 H, RDW Coeff of Ge 14.2, Plt Count 269, MPV 9.5, Immature Gran % (Auto) 3.500 H, Neut % (Auto) 89.3 H, Lymph % (Auto) 4.5 L, [place] % (Auto) 1.8, Eos % (Auto) 0.4, Baso % (Auto) 0.5, Absolute Neuts (auto) 24.9 H, Absolute Lymphs (auto) 1.26, Nucleated RBC % 0, Differential Comment COMMENT, PT 15.5 H, INR 1.2, APTT 25.9, Sodium 136, Potassium 3.7, Chloride 104, Carbon Dioxide 20.4 L, Anion Gap 12, BUN 13, Creatinine 1.28 H, Estim Creat Clear Calc 46.70 L, Est GFR (MDRD) Non-Af 45 L, BUN/Creatinine Ratio 9.8 L, Glucose 128 H, Lactic Acid 1.4, Calcium 9.0, Total Bilirubin 1.34 H, AST 25, ALT 13, Alkaline Phosphatase 99, Troponin T High Sens 20 H, Total Protein 7.3, Albumin 3.6, Globulin 3.7, Albumin/Globulin Ratio 1.0 06/04/24 10:50: Urine Color Yellow, Urine Clarity Turbid, Urine pH 9.0, Ur Specific [place] 1.015, Urine Protein 100 H, Urine Glucose (UA) Normal, Urine Ketones Negative, Urine Occult Blood 50 H, Urine Nitrite Positive H, Urine Bilirubin Negative, Urine Urobilinogen 1 H, Ur Leukocyte Esterase 500 H, Urine RBC 0 SEEN, Urine WBC 50-100 SEEN, Ur Squamous Epith Cells 10-25 SEEN, Triple Phos Crystals 2+, Amorphous Sediment 3+, Urine Bacteria 3+, Urine Mucus 0 SEEN 06/04/24 12:49: Troponin T Hi Sens 2 Hr 19 H 06/04/24 14:30: Troponin T Hi Sens 4Hr 19 H 06/05/24 05:39: WBC 23.0 H, RBC 3.70 L, Hgb 11.2 L, Hct 34.5 L, MCV 93.2, MCH 30.3, MCHC 32.5, RDW Std Deviation 49.8 H, RDW Coeff of Ge 14.5, Plt Count 249, MPV 9.9, Neut % (Auto) Not Reportable, Absolute Neuts (auto) 20.7 H, Absolute Lymphs (auto) 1.38, Total Counted 100, Neutrophils % (Manual) 81 H, Band Neutrophils % 9 H, Lymphocytes % (Manual) 6 L, Monocytes % (Manual) 3, Metamyelocytes % 1, Diff Path Review July, Platelet Estimate ADEQUATE, RBC Morphology NORM C+C, Sodium 136, Potassium 3.4, Chloride 106, Carbon Dioxide 19.2 L, Anion Gap 11, BUN 14, Creatinine 1.18, Estim Creat Clear Calc 49.22 L, Est GFR (MDRD) Non-Af 49 L, BUN/Creatinine Ratio 11.4, Glucose 112 H, Calcium 8.5 Micro: Microbiology 06/04/24 10:50 Urine Catheter - Cifuentes Legionella Antigen - Final 06/04/24 10:50 Urine Catheter - Cifuentes Streptococcus pneumoniae Antigen (M - Final Streptococcus pneumonia Ag 06/04/24 10:22 Mucosa - Nose SARS-CoV-2, Influenza & RSV (PCR) - Final Influenzae A Radiography Diagnostic Testing: Radiology Impression Chest X-Ray 06/04/24 10:50 IMPRESSION: Cavitary lesion in the right mid lung. Reading Location: [facility] Chest CTA 06/04/24 11:39 IMPRESSION: Large right lower lobe pneumonia is smaller satellite lesion in the right midlung Reading Location: [facility] Physical Exam Narrative GENERAL: cooperative HEENT: Atraumatic; normocephalic EYES; Anicteric, Normal Conjunctiva NECK; supple, normal thyroid, RESPIRATORY: Diminished to auscultation CARDIOVASCULAR: Regular S1 S2, GI: soft, normoactive bowel sounds, : No Renal angle tenderness; EXTREMITIES: No edema, no clubbing, MUSCULOSKELETAL: no muscle wasting NEURO: Awake; no lateralizing signs. SKIN: No Rash PSYCH; Flat affect Assessment & Plan Assessment/Plan (1) Pneumonia: PLAN: Plan Patient is a 73-year-old lady resident at an extended care facility who was sent to the emergency department with nausea vomiting as well as fever patient was found to be hypoxic on admission subsequent evaluation revealed community-acquired pneumonia and influenza A admitted to a monitored bed for subsequent management 1. Acute hypoxia ? Due to combination of community-acquired pneumonia as well as influenza A placed on supplemental oxygen with treatment of the underlying etiology 2. Pneumonia - Suspected to be secondary to streptococcal pneumonia, Blood and sputum cultures sent. Patient placed on Rocephin and Zithromax and placed on oxygen titrated to keep Pulse Ox greater than 90 3. Acute influenza A infection ?Did continue with symptom management; patient is outside the window for Tamiflu 4. Acute acute cystitis ? Secondary to presence of an indwelling Cifuentes catheter patient started on Rocephin culture sent 5. Chronic kidney disease stage IIIb ? Monitoring with daily BMPs 6. Hypertension ? Blood pressure controlled, home medications continued with dose adjustment as needed 7. Bipolar disorder with anxiety - did continue with psychotropic medications 8. Chronic pain -Patient with buprenorphine patch -Also gets oxycodone every 6 as needed based on patient's home med reconciliation so we will continue this 9. GERD -Continue famotidine 10. Morbid obesity -BMI documented as 43.7 kg/m? at time of admission; Complicates treatment, prognosis, outcomes, Recommend weight loss and lifestyle changes 11. DVT prophylaxis ? On enoxaparin 12. Hypokalemia -Corrected per protocol Time spent in the patient's overall evaluation,decision-making process, review of diagnostic data, adjustment of management, discussion with other providers, nursing nursing and ancillary staff involved in patient's care documentation, 50 Minutes Charges/Coding Visit Charges Inpatient E&M: 16557 [facility] Hosp L3
[2024-06-05] MEDS: Famotidine 20 MG Tablet 40 MG PO (08:34)
[2024-06-05] MEDS: Enoxaparin 40 MG/0.4 ML Syringe SC (08:34)
[2024-06-05] MEDS: DULoxetine Hcl 20 MG Capsule PO (08:34)
[2024-06-05] MEDS: Sodium Bicarbonate 650 MG Tablet 325 MG PO (08:34)
[2024-06-05] MEDS: amLODIPine 5 MG Tablet PO (08:34)
[2024-06-05] MEDS: MEDROXYPROGESTERONE ACETATE 10 MG TABLET PO (08:34)
[2024-06-05] MEDS: buPROPion (XL) 300 MG TABLET.XL PO (08:34)
[2024-06-05] MEDS: guaiFENesin 1,200 MG Tablet 1200 MG PO ×2 (08:34→21:02)
[2024-06-05] MEDS: ARIPiprazole 5 MG Tablet PO (08:34)
[2024-06-05] MEDS: LORazepam 0.5 MG Tablet PO ×2 (08:34→21:02)
[2024-06-05] MEDS: Ceftriaxone 2 GM in 0.9% Normal Saline (50mL MB+) 50 ML IV (08:38)
[2024-06-05] MEDS: Azithromycin 500 MG in 0.9% Normal Saline (250mL Bag) 250 ML 255 MG IV (10:10)
--- NOTE | 2024-06-05 10:57 | CASEMGMT ---
KVNG called patient's niece Vinita who is also listed as patient's POA. KVNG wanted to confirm the plan is to return to [facility] at d/c. However, the phone call went right to voice mail. KVNG left KVNG's name and number for a return call. Linda Wood TAPE RECORDER REPAIRER SCARLET
--- NOTE | 2024-06-05 11:56 | CASEMGMT ---
Addendum entered by Vinita Sanchez 06/05/24 12:17: HC POA rec'd and placed on chart. Vinita Sanchez DC Planning Asst. Original Note: Discharge Planning Call placed to [facility] for copy of pts HC POA forms to be faxed to [facility], attn; Linda or Vinita Sanchez DC Planning
[2024-06-05] MEDS: Potassium Chloride Oral Tablet 20 MEQ PO (15:33)
[2024-06-05] MEDS: Acetaminophen 325 MG Tablet 650 MG PO (21:02)
[2024-06-05] MEDS: traZODone 50 MG Tablet 75 MG PO (21:02)
[2024-06-06] VITALS (11 sets, daily range): BP systolic 124–139; BP diastolic 56–63; PULSE 78–95; RESP 18–24; TEMP 35.6–37; O2SAT 94–96
[2024-06-06] MEDS: Ipratropium/Albuterol Sulfate 3 ML AMPUL.NEB INHALATION ×5 (06:52→23:14)
--- NOTE | 2024-06-06 09:08 | CASEMGMT ---
Discharge Planning Msg rec'd from pts niece/HC POA. She wanted to make sure pts O2 levels were stable before returning. SW updated and clinicals sent to [facility]. Vinita Sanchez DC Planning Asst.
[2024-06-06] MEDS: LORazepam 0.5 MG Tablet PO ×2 (09:15→22:43)
[2024-06-06] MEDS: DULoxetine Hcl 20 MG Capsule PO (09:15)
[2024-06-06] MEDS: MEDROXYPROGESTERONE ACETATE 10 MG TABLET PO (09:15)
[2024-06-06] MEDS: buPROPion (XL) 300 MG TABLET.XL PO (09:15)
[2024-06-06] MEDS: ARIPiprazole 5 MG Tablet PO (09:15)
[2024-06-06] MEDS: Potassium Chloride Oral Tablet 20 MEQ PO ×2 (09:15→16:46)
[2024-06-06] MEDS: amLODIPine 5 MG Tablet PO (09:15)
[2024-06-06] MEDS: Famotidine 20 MG Tablet 40 MG PO (09:15)
[2024-06-06] MEDS: Sodium Bicarbonate 650 MG Tablet 325 MG PO (09:16)
[2024-06-06] MEDS: guaiFENesin 1,200 MG Tablet 1200 MG PO ×2 (09:16→22:44)
[2024-06-06] MEDS: Enoxaparin 40 MG/0.4 ML Syringe SC (09:16)
[2024-06-06] MEDS: Azithromycin 500 MG in 0.9% Normal Saline (250mL Bag) 250 ML 255 MG IV (09:18)
--- NOTE | 2024-06-06 09:35 | CASEMGMT ---
Social Work SW received a call from pt's dgt who confirmed plan is to return to [facility] at time of discharge. PATT Vasquez
--- NOTE | 2024-06-06 10:29 | PCM.PN.HOSP ---
Reason for Visit Reason for Visit: Diagnoses Pneumonia, unspecified organism (06/04/24) Subjective Subjective Patient seen has a persistent cough ordered Omid Montes. Objective Data Objective Data Vital Signs: Vital Signs Temp Pulse Resp BP Pulse Ox O2 Del Method O2 Flow Rate 96.0 F L 92 18 139/61 H 94 Room Air 2 06/06/24 09:10 06/06/24 09:10 06/06/24 09:10 06/06/24 09:10 06/06/24 09:10 06/06/24 09:21 06/06/24 06:52 Oxygen Flow Rate (L/min) 2 Oxygen Delivery Method Room Air Weight: 103.1 kg Body Mass Index (BMI) 41.5 Intake & Output: Intake and Output for Last 24 Hours 06/04/24 06/05/24 06/06/24 23:59 23:59 23:59 Intake Total 2897.5 / 2897.5 1945 / 2495 1000 / 1000 Output Total 1250 / 1250 2000 / 2400 1500 / 1500 Balance 1647.5 / 1647.5 -55 / 95 -500 / -500 Lab / Micro Data 06/05/24 05:39 06/05/24 05:39 Micro: Microbiology 06/04/24 10:50 Urine Catheter - Catheter Urine Culture - Preliminary GNR Poss Pseudomonas sp Gram negative yvette#2 06/04/24 11:19 Blood Culture (Wb) - Right Forearm Blood Culture - Preliminary No growth in 48 hours. 06/04/24 10:20 Blood Culture (Wb) - Anticubital Left Blood Culture - Preliminary No growth in 48 hours. 06/04/24 10:50 Urine Catheter - Cifuentes Legionella Antigen - Final 06/04/24 10:50 Urine Catheter - Cifuentes Streptococcus pneumoniae Antigen (M - Final Streptococcus pneumonia Ag 06/04/24 10:22 Mucosa - Nose SARS-CoV-2, Influenza & RSV (PCR) - Final Influenzae A Physical Exam Narrative GENERAL: cooperative HEENT: Atraumatic; normocephalic EYES; Anicteric, Normal Conjunctiva NECK; supple, normal thyroid, RESPIRATORY: Diminished to auscultation CARDIOVASCULAR: Regular S1 S2, GI: soft, normoactive bowel sounds, : No Renal angle tenderness; EXTREMITIES: No edema, no clubbing, MUSCULOSKELETAL: no muscle wasting NEURO: Awake; no lateralizing signs. SKIN: No Rash PSYCH; Flat affect Assessment & Plan Assessment/Plan (1) Pneumonia: PLAN: Plan Patient is a 73-year-old lady resident at an extended care facility who was sent to the emergency department with nausea vomiting as well as fever patient was found to be hypoxic on admission subsequent evaluation revealed community-acquired pneumonia and influenza A admitted to a monitored bed for subsequent management 1. Acute hypoxia ? Due to combination of community-acquired pneumonia as well as influenza A placed on supplemental oxygen with treatment of the underlying etiology ? 06/29/2024; patient back on room air 2. Pneumonia - Suspected to be secondary to streptococcal pneumonia, Blood and sputum cultures sent. Patient placed on Rocephin and Zithromax and placed on oxygen titrated to keep Pulse Ox greater than 90 ? 06/06/2024; patient streptococcal pneumonia antigen came back positive 3. Acute influenza A infection ?Did continue with symptom management; patient is outside the window for Tamiflu ? 06/29/2024; patient has persistent cough added Tessalon Perles 4. Acute acute cystitis ? Secondary to presence of an indwelling Cifuentes catheter patient started on Rocephin culture sent ? 06/06/2024; urine cultures positive for gram-negative rods suspected to be Pseudomonas and a second gram-negative yvette organisms final identification sensitivities pending. Given the suspicion of possible Pseudomonas, added Levaquin and discontinued azithromycin 5. Chronic kidney disease stage IIIb ? Monitoring with daily BMPs ? 06/06/2024; BMP ordered result pending 6. Hypertension ? Blood pressure controlled, home medications continued with dose adjustment as needed 7. Bipolar disorder with anxiety - did continue with psychotropic medications 8. Chronic pain -Patient with buprenorphine patch -Also gets oxycodone every 6 as needed based on patient's home med reconciliation so we will continue this 9. GERD -Continue famotidine 10. Morbid obesity -BMI documented as 43.7 kg/m? at time of admission; Complicates treatment, prognosis, outcomes, Recommend weight loss and lifestyle changes 11. DVT prophylaxis ? On enoxaparin 12. Hypokalemia -Corrected per protocol Time spent in the patient's overall evaluation,decision-making process, review of diagnostic data, adjustment of management, discussion with other providers, nursing nursing and ancillary staff involved in patient's care documentation, 50 Minutes Charges/Coding Visit Charges Inpatient E&M: 43504 [place] [id number]
[2024-06-06 10:53] LABS: Absolute Lymphocyte Count 1.61 X10^3/uL (0.83-4.51); Absolute Neutrophil Count 9.1 X10^3/uL (2.0-7.7); Basophil# 0.05 X10^3/uL; Basophil% 0.4 % (0-1); Eosinophils% 2.5 % (0-5); Hematocrit 34.7 % (37-47); Hemoglobin 11.3 g/dL (12.0-15.0); Lymphocyte # 1.61 X10^3/ul (0.83-4.51); Lymphocyte % 13.5 % (19-41); Mean Corp Hgb Conc 32.6 g/dL (32-36); Mean Corpuscular Hgb 30.3 pg (27.0-32.0); Mean Platelet Vol. 9.7 fl (6.2-12.0); Monocyte# 0.58 X10^3/uL; Monocyte% 4.9 % (0-10); NRBC Flagged by Analyzer 0 % (0-5); Neutrophil # 9.08 X10^3/uL (2.7-7.7); Neutrophil % 76.3 % (47-70); Platelet Count 310 K/mm3 (150-450); RBC Distribution Width CV 14.5 % (11.6-14.6); RBC Distribution Width SD 49.5 fl (35.1-43.9); Red Blood Count 3.73 M/mm3 (4.2-5.4); White Blood Count 11.9 K/mm3 (4.4-11.0)
[2024-06-06] MEDS: Ceftriaxone 2 GM in 0.9% Normal Saline (50mL MB+) 50 ML IV (11:12)
[2024-06-06] MEDS: levoFLOXacin IV 750 MG/150 ML BAG 100 MG IV (11:42)
[2024-06-06 12:24] LABS: Anion Gap 10 (5-15); BUN 14 mg/dL (4-19); BUN/Creat Ratio 11.4 RATIO (10-20); Calcium,Total 8.8 mg/dL (7.6-11.0); Carbon Dioxide 19.3 mmol/L (21.0-32.0); Chloride 108 mmol/L (98-108); Creatinine, Serum 1.25 mg/dL (0.70-1.20); EST Glomerular Filtration Rate 46 (>60); Estimated Creatinine Clearance 46.46 ml/min (50-250); Glucose 150 mg/dL (70-99); Magnesium 2.2 mg/dL (1.5-2.2); Potassium 3.5 mmol/L (3.3-5.1); Sodium Level 138 mmol/L (133-145)
[2024-06-06] MEDS: Menthol/Lanolin/Calamine/Znox 113 GM Tube 1 APPLIC TOPICAL (22:43)
[2024-06-06] MEDS: traZODone 50 MG Tablet 75 MG PO (22:44)
[2024-06-06] MEDS: MELATONIN 3 MG TABLET PO (22:45)
[2024-06-06] MEDS: 0.9% Saline Lock 10 ML Syringe IV (22:45)
[2024-06-06] MEDS: Benzonatate 100 MG Capsule PO (22:45)
[2024-06-07] VITALS (9 sets, daily range): BP systolic 110–146; BP diastolic 58–74; PULSE 81–102; RESP 18–24; TEMP 36.6–36.8; O2SAT 94–100
[2024-06-07] MEDS: Benzonatate 100 MG Capsule PO ×2 (04:41→21:01)
[2024-06-07 06:44] LABS: Anion Gap 11 (5-15); BUN 13 mg/dL (4-19); BUN/Creat Ratio 10.6 RATIO (10-20); Calcium,Total 8.9 mg/dL (7.6-11.0); Chloride 110 mmol/L (98-108); Creatinine, Serum 1.25 mg/dL (0.70-1.20); EST Glomerular Filtration Rate 46 (>60); Estimated Creatinine Clearance 46.46 ml/min (50-250); Glucose 99 mg/dL (70-99); Magnesium 2.1 mg/dL (1.5-2.2); Phosphorus 2.6 mg/dL (2.7-4.5); Potassium 3.9 mmol/L (3.3-5.1); Sodium Level 139 mmol/L (133-145)
[2024-06-07] MEDS: Ipratropium/Albuterol Sulfate 3 ML AMPUL.NEB INHALATION ×4 (07:26→20:25)
[2024-06-07] MEDS: amLODIPine 5 MG Tablet PO (10:14)
[2024-06-07] MEDS: Famotidine 20 MG Tablet 40 MG PO (10:14)
[2024-06-07] MEDS: Potassium Chloride Oral Tablet 20 MEQ PO ×2 (10:15→17:12)
[2024-06-07] MEDS: buPROPion (XL) 300 MG TABLET.XL PO (10:15)
[2024-06-07] MEDS: ARIPiprazole 5 MG Tablet PO (10:15)
[2024-06-07] MEDS: LORazepam 0.5 MG Tablet PO ×2 (10:15→20:48)
[2024-06-07] MEDS: guaiFENesin 1,200 MG Tablet 1200 MG PO ×2 (10:15→22:45)
[2024-06-07] MEDS: DULoxetine Hcl 20 MG Capsule PO (10:15)
[2024-06-07] MEDS: MEDROXYPROGESTERONE ACETATE 10 MG TABLET PO (10:16)
[2024-06-07] MEDS: Enoxaparin 40 MG/0.4 ML Syringe SC (10:16)
[2024-06-07] MEDS: Sodium Bicarbonate 650 MG Tablet 325 MG PO (10:16)
[2024-06-07] MEDS: Ceftriaxone 2 GM in 0.9% Normal Saline (50mL MB+) 50 ML IV (10:24)
[2024-06-07] MEDS: 0.9% Saline Lock 10 ML Syringe IV (10:24)
--- NOTE | 2024-06-07 11:06 | PN.HOSP_ITS ---
Reason for Visit Reason for Visit: Diagnoses Pneumonia, unspecified organism (06/04/24) Subjective Subjective Patient seen urine cultures positive for Proteus. Patient is also growing suspected Pseudomonas in the urine final identification and sensitivities pending Objective Data Objective Data Vital Signs: Vital Signs Temp Pulse Resp BP Pulse Ox O2 Del Method O2 Flow Rate 97.9 F 83 18 110/61 98 Room Air 2 06/07/24 10:32 06/07/24 10:32 06/07/24 10:32 06/07/24 10:32 06/07/24 10:32 06/07/24 10:32 06/06/24 06:52 Oxygen Flow Rate (L/min) 2 Oxygen Delivery Method Room Air Weight: 103.1 kg Body Mass Index (BMI) 41.5 Intake & Output: Intake and Output for Last 24 Hours 06/05/24 06/06/24 06/07/24 23:59 23:59 23:59 Intake Total 1945 / 2495 2735 / 2735 Output Total 1999 / 2400 4100 / 4100 1450 / 1450 Balance -55 / 95 -1365 / -1365 -1450 / -1450 Lab / Micro Data 06/06/24 10:41 06/07/24 05:18 Labs: Laboratory Results - last 24 hr 06/06/24 10:41: Sodium 138, Potassium 3.5, Chloride 108, Carbon Dioxide 19.3 L, Anion Gap 10, BUN 14, Creatinine 1.25 H, Estim Creat Clear Calc 46.46 L, Est GFR (MDRD) Non-Af 46 L, BUN/Creatinine Ratio 11.4, Glucose 150 H, Calcium 8.8, P hosphorus 2.0 L, Magnesium 2.2 06/07/24 05:18: Sodium 139, Potassium 3.9, Chloride 110 H, Carbon Dioxide 18.0 L , Anion Gap 11, BUN 13, Creatinine 1.25 H, Estim Creat Clear Calc 46.46 L, Est GFR (MDRD) Non-Af 46 L, BUN/Creatinine Ratio 10.6, Glucose 99, Calcium 8.9, P hosphorus 2.6 L, Magnesium 2.1 Micro: Microbiology 06/04/24 10:50 Urine Catheter - Catheter Urine Culture - Preliminary GNR Poss Pseudomonas sp Proteus mirabilis 06/04/24 11:19 Blood Culture (Wb) - Right Forearm Blood Culture - Preliminary No growth in 48 hours. 06/04/24 10:20 Blood Culture (Wb) - Anticubital Left Blood Culture - Preliminary No growth in 48 hours. 06/04/24 10:50 Urine Catheter - Cifuentes Legionella Antigen - Final 06/04/24 10:50 Urine Catheter - Cifuentes Streptococcus pneumoniae Antigen (M - Final Streptococcus pneumonia Ag 06/04/24 10:22 Mucosa - Nose SARS-CoV-2, Influenza & RSV (PCR) - Final Influenzae A Physical Exam Narrative GENERAL: cooperative HEENT: Atraumatic; normocephalic EYES; Anicteric, Normal Conjunctiva NECK; supple, normal thyroid, RESPIRATORY: Diminished to auscultation CARDIOVASCULAR: Regular S1 S2, GI: soft, normoactive bowel sounds, : No Renal angle tenderness; EXTREMITIES: No edema, no clubbing, MUSCULOSKELETAL: no muscle wasting NEURO: Awake; no lateralizing signs. SKIN: No Rash PSYCH; Flat affect Assessment & Plan Assessment/Plan (1) Pneumonia: PLAN: Plan Patient is a 73-year-old lady resident at an [facility] care facility who was sent to the emergency department with nausea vomiting as well as fever patient was found to be hypoxic on admission subsequent evaluation revealed community- acquired pneumonia and influenza A admitted to a monitored bed for subsequent management 1. Acute hypoxia ? Due to combination of community-acquired pneumonia as well as influenza A placed on supplemental oxygen with treatment of the underlying etiology ? 06/29/2024; patient back on room air 2. Pneumonia - Suspected to be secondary to streptococcal pneumonia, Blood and sputum cultures sent. Patient placed on Rocephin and Zithromax and placed on oxygen titrated to keep Pulse Ox greater than 90 ? 06/06/2024; patient streptococcal pneumonia antigen came back positive 3. Acute influenza A infection ?Did continue with symptom management; patient is outside the window for Tamiflu ? 06/29/2024; patient has persistent cough added Omid Montes 4. Acute acute cystitis with Proteus and suspected Pseudomonas ? Secondary to presence of an indwelling Cifuentes catheter patient started on Rocephin culture sent ? 06/06/2024; urine cultures positive for gram-negative rods suspected to be Pseudomonas and a second gram-negative yvette organisms final identification sensitivities pending. Given the suspicion of possible Pseudomonas, added Levaquin and discontinued azithromycin ? 06/07/2024Patient seen urine cultures positive for Proteus as well as suspected Pseudomonas in the urine final identification and sensitivities pending 5. Chronic kidney disease stage IIIb ? Monitoring with daily BMPs ? 06/06/2024; BMP ordered result pending 6. Hypertension ? Blood pressure controlled, home medications continued with dose adjustment as needed 7. Bipolar disorder with anxiety - did continue with psychotropic medications 8. Chronic pain -Patient with buprenorphine patch -Also gets oxycodone every 6 as needed based on patient's home med reconciliation so we will continue this 9. GERD -Continue famotidine 10. Morbid obesity -BMI documented as 43.7 kg/m? at time of admission; Complicates treatment, prognosis, outcomes, Recommend weight loss and lifestyle changes 11. DVT prophylaxis ? On enoxaparin 12. Hypokalemia -Corrected per protocol Time spent in the patient's overall evaluation,decision-making process, review of diagnostic data, adjustment of management, discussion with other providers, nursing nursing and ancillary staff involved in patient's care documentation, 36 minutes Charges/Coding Visit Charges Inpatient E&M: 20523 [facility] Hosp L2
[2024-06-07] MEDS: Menthol/Lanolin/Calamine/Znox 113 GM Tube 1 APPLIC TOPICAL ×2 (11:18→20:50)
[2024-06-07] MEDS: levoFLOXacin IV 750 MG/150 ML BAG 100 MG IV (11:19)
[2024-06-07] MEDS: Acetaminophen 325 MG Tablet 650 MG PO ×2 (11:20→20:48)
[2024-06-07] MEDS: MELATONIN 3 MG TABLET PO (20:48)
[2024-06-07] MEDS: traZODone 50 MG Tablet 75 MG PO (20:48)
[2024-06-08] VITALS (11 sets, daily range): BP systolic 129–135; BP diastolic 51–82; PULSE 78–92; RESP 18–20; TEMP 36.4–37.1; O2SAT 95–97
[2024-06-08 06:52] LABS: Anion Gap 11 (5-15); BUN 12 mg/dL (4-19); BUN/Creat Ratio 10.2 RATIO (10-20); Calcium,Total 9.2 mg/dL (7.6-11.0); Carbon Dioxide 18.2 mmol/L (21.0-32.0); Chloride 110 mmol/L (98-108); Creatinine, Serum 1.18 mg/dL (0.70-1.20); EST Glomerular Filtration Rate 49 (>60); Estimated Creatinine Clearance 49.22 ml/min (50-250); Glucose 114 mg/dL (70-99); Potassium 4.3 mmol/L (3.3-5.1); Sodium Level 139 mmol/L (133-145)
[2024-06-08] MEDS: Ipratropium/Albuterol Sulfate 3 ML AMPUL.NEB INHALATION ×3 (07:08→20:56)
[2024-06-08 08:01] LABS: Hematocrit 35.8 % (37-47); Hemoglobin 11.5 g/dL (12.0-15.0); Mean Corp Hgb Conc 32.1 g/dL (32-36); Mean Corpuscular Hgb 30.3 pg (27.0-32.0); Mean Corpuscular Volume 94.2 fL (81-99); Mean Platelet Vol. 10.1 fl (6.2-12.0); POSITIVE COUNT YES; POSITIVE MORPHOLOGY YES; Platelet Count 381 K/mm3 (150-450); RBC Distribution Width SD 51.9 fl (35.1-43.9); White Blood Count 9.7 K/mm3 (4.4-11.0)
[2024-06-08 09:05] LABS: Differential Indicated MANUAL DIFF
[2024-06-08 09:13] LABS: Eosinophil 6 % (0-5); Monocyte 7 % (0-10); Neutrophil-Segmented 51 % (47-70); Total Cells Counted 100 (MANUAL DIFF)
[2024-06-08 09:14] LABS: Lymphocyte 31 % (19-41); Metamyelocyte 3 % (0-1); Myelocyte 2 % (0-0)
[2024-06-08 09:16] LABS: Absolute Lymphocyte Count 3.02 X10^3/uL (0.83-4.51)
--- NOTE | 2024-06-08 09:26 | PN.HOSP_ITS ---
Reason for Visit Reason for Visit: Diagnoses Pneumonia, unspecified organism (06/04/24) Subjective Subjective Patient seen cough persists much more productive this a.m. Urine culture is growing Proteus and the second gram-negative yvette final identification and sensitivities pending. Objective Data Objective Data Vital Signs: Vital Signs Temp Pulse Resp BP Pulse Ox O2 Del Method O2 Flow Rate 98.6 F 89 18 135/67 H 97 Room Air 2 06/08/24 03:19 06/08/24 03:19 06/08/24 04:00 06/08/24 03:19 06/08/24 03:19 06/08/24 04:00 06/06/24 06:52 Oxygen Flow Rate (L/min) 2 Oxygen Delivery Method Room Air Weight: 103.1 kg Body Mass Index (BMI) 41.5 Intake & Output: Intake and Output for Last 24 Hours 06/06/24 06/07/24 06/08/24 23:59 23:59 23:59 Intake Total 2735 / 2735 680 / 1160 530 / 530 Output Total 4100 / 4100 3150 / 4000 1400 / 1400 Balance -1365 / -1365 -2470 / -2840 -870 / -870 Lab / Micro Data 06/08/24 05:25 06/08/24 05:25 Labs: Laboratory Results - last 24 hr 06/08/24 05:25: WBC 9.7, RBC 3.80 L, Hgb 11.5 L, Hct 35.8 L, MCV 94.2, MCH 30.3, MCHC 32.1, RDW Std Deviation 51.9 H, RDW Coeff of Ge 15.0 H, Plt Count 381, MPV 10.1, Immature Gran % (Auto) MORTGAGE BANKER, Neut % (Auto) MORTGAGE BANKER, Lymph % (Auto) MORTGAGE BANKER, [place] % (Auto) MORTGAGE BANKER, Eos % (Auto) MORTGAGE BANKER, Baso % (Auto) MORTGAGE BANKER, Absolute Neuts (auto) 5.0, Absolute Lymphs (auto) 3.02, Total Counted 100, Neutrophils % (Manual) 51, Lymphocytes % (Manual) 31, Monocytes % (Manual) 7, Eosinophils % (Manual) 6 H, M etamyelocytes % 3 H, Myelocytes % 2 H, Nucleated RBC % MORTGAGE BANKER, Sodium 139, Potassium 4.3, Chloride 110 H, Carbon Dioxide 18.2 L, Anion Gap 11, BUN 12, Creatinine 1.18, Estim Creat Clear Calc 49.22 L, Est GFR (MDRD) Non-Af 49 L, BUN/Creatinine Ratio 10.2, Glucose 114 H, Calcium 9.2 Micro: Microbiology 06/04/24 10:50 Urine Catheter - Catheter Urine Culture - Preliminary Proteus mirabilis Gram negative yvette#2 06/04/24 11:19 Blood Culture (Wb) - Right Forearm Blood Culture - Preliminary No growth in 48 hours. 06/04/24 10:20 Blood Culture (Wb) - Anticubital Left Blood Culture - Preliminary No growth in 48 hours. 06/04/24 10:50 Urine Catheter - Cifuentes Legionella Antigen - Final 06/04/24 10:50 Urine Catheter - Cifuentes Streptococcus pneumoniae Antigen (M - Final Streptococcus pneumonia Ag 06/04/24 10:22 Mucosa - Nose SARS-CoV-2, Influenza & RSV (PCR) - Final Influenzae A Physical Exam Narrative GENERAL: cooperative HEENT: Atraumatic; normocephalic EYES; Anicteric, Normal Conjunctiva NECK; supple, normal thyroid, RESPIRATORY: Diminished to auscultation CARDIOVASCULAR: Regular S1 S2, GI: soft, normoactive bowel sounds, : No Renal angle tenderness; EXTREMITIES: No edema, no clubbing, MUSCULOSKELETAL: no muscle wasting NEURO: Awake; no lateralizing signs. SKIN: No Rash PSYCH; Flat affect Assessment & Plan Assessment/Plan (1) Pneumonia: PLAN: Plan Patient is a 73-year-old lady resident at an extended care facility who was sent to the emergency department with nausea vomiting as well as fever patient was found to be hypoxic on admission subsequent evaluation revealed community- acquired pneumonia and influenza A admitted to a monitored bed for subsequent management 1. Acute hypoxia ? Due to combination of community-acquired pneumonia as well as influenza A placed on supplemental oxygen with treatment of the underlying etiology ? 06/29/2024; patient back on room air 2. Pneumonia - Suspected to be secondary to streptococcal pneumonia, Blood and sputum cultures sent. Patient placed on Rocephin and Zithromax and placed on oxygen titrated to keep Pulse Ox greater than 90 ? 06/06/2024; patient streptococcal pneumonia antigen came back positive 3. Acute influenza A infection ?Did continue with symptom management; patient is outside the window for Tamiflu ? 06/29/2024; patient has persistent cough added Tessalon Perles 4. Acute acute cystitis with Proteus and suspected Pseudomonas ? Secondary to presence of an indwelling Cifuentes catheter patient started on Rocephin culture sent ? 06/06/2024; urine cultures positive for gram-negative rods suspected to be Pseudomonas and a second gram-negative yvette organisms final identification sensitivities pending. Given the suspicion of possible Pseudomonas, added Levaquin and discontinued azithromycin ? 06/07/2024Patient seen urine cultures positive for Proteus as well as suspected Pseudomonas in the urine final identification and sensitivities pending ? 06/08/2024; final urine cultures pending 5. Chronic kidney disease stage IIIb ? Monitoring with daily BMPs ? 06/06/2024; BMP ordered result pending 6. Hypertension ? Blood pressure controlled, home medications continued with dose adjustment as needed 7. Bipolar disorder with anxiety - did continue with psychotropic medications 8. Chronic pain -Patient with buprenorphine patch -Also gets oxycodone every 6 as needed based on patient's home med reconciliation so we will continue this 9. GERD -Continue famotidine 10. Morbid obesity -BMI documented as 43.7 kg/m? at time of admission; Complicates treatment, prognosis, outcomes, Recommend weight loss and lifestyle changes 11. DVT prophylaxis ? On enoxaparin 12. Hypokalemia -Corrected per protocol Time spent in the patient's overall evaluation,decision-making process, review of diagnostic data, adjustment of management, discussion with other providers, nursing nursing and ancillary staff involved in patient's care documentation, 36 minutes Charges/Coding Visit Charges Inpatient E&M: 05500 [facility] Hosp L2
--- NOTE | 2024-06-08 09:46 | CASEMGMT ---
Discharge Planning [facility] with note that pt will likely return over the weekend. Green sheet placed on chart. Vinita Sanchez DC Planning Asst.
[2024-06-08] MEDS: LORazepam 0.5 MG Tablet PO ×2 (10:00→21:14)
[2024-06-08] MEDS: ARIPiprazole 5 MG Tablet PO (10:00)
[2024-06-08] MEDS: buPROPion (XL) 300 MG TABLET.XL PO (10:00)
[2024-06-08] MEDS: MEDROXYPROGESTERONE ACETATE 10 MG TABLET PO (10:00)
[2024-06-08] MEDS: Sodium Bicarbonate 650 MG Tablet 325 MG PO (10:01)
[2024-06-08] MEDS: amLODIPine 5 MG Tablet PO (10:01)
[2024-06-08] MEDS: Famotidine 20 MG Tablet 40 MG PO (10:02)
[2024-06-08] MEDS: Potassium Chloride Oral Tablet 20 MEQ PO ×2 (10:02→17:00)
[2024-06-08] MEDS: DULoxetine Hcl 20 MG Capsule PO (10:03)
[2024-06-08] MEDS: guaiFENesin 1,200 MG Tablet 1200 MG PO ×2 (10:03→21:14)
[2024-06-08] MEDS: Menthol/Lanolin/Calamine/Znox 113 GM Tube 1 APPLIC TOPICAL ×2 (10:03→21:14)
[2024-06-08] MEDS: Ceftriaxone 2 GM in 0.9% Normal Saline (50mL MB+) 50 ML IV (10:09)
[2024-06-08] MEDS: Enoxaparin 40 MG/0.4 ML Syringe SC (10:09)
[2024-06-08] MEDS: Acetaminophen 325 MG Tablet 650 MG PO (17:38)
[2024-06-08] MEDS: guaiFENesin/Codeine 5 ML UDC PO (17:38)
[2024-06-08] MEDS: MELATONIN 3 MG TABLET PO (21:14)
[2024-06-08] MEDS: oxyCODONE 5 MG Tablet 10 MG PO (21:14)
[2024-06-08] MEDS: traZODone 50 MG Tablet 75 MG PO (21:21)
[2024-06-09] VITALS (9 sets, daily range): BP systolic 120–133; BP diastolic 58–66; PULSE 75–97; RESP 16–22; TEMP 36.4–37.5; O2SAT 93–97
[2024-06-09] MEDS: guaiFENesin/Codeine 5 ML UDC PO ×2 (03:33→19:58)
[2024-06-09] MEDS: oxyCODONE 5 MG Tablet 10 MG PO ×2 (03:44→22:14)
[2024-06-09] MEDS: Acetaminophen 325 MG Tablet 650 MG PO ×2 (03:44→22:15)
[2024-06-09] MEDS: Ipratropium/Albuterol Sulfate 3 ML AMPUL.NEB INHALATION ×4 (07:13→19:21)
[2024-06-09 07:43] LABS: Anion Gap 11 (5-15); BUN 9 mg/dL (4-19); Calcium,Total 9.1 mg/dL (7.6-11.0); Carbon Dioxide 18.7 mmol/L (21.0-32.0); Chloride 110 mmol/L (98-108); Creatinine, Serum 1.18 mg/dL (0.70-1.20); EST Glomerular Filtration Rate 49 (>60); Estimated Creatinine Clearance 49.22 ml/min (50-250); Glucose 89 mg/dL (70-99); Potassium 4.4 mmol/L (3.3-5.1); Sodium Level 139 mmol/L (133-145)
--- NOTE | 2024-06-09 07:58 | PCM.PN.HOSP ---
Reason for Visit Reason for Visit: Diagnoses Pneumonia, unspecified organism (06/04/24) Subjective Subjective Patient urine cultures have resulted growing Pseudomonas and Proteus. Adjusted patient antibiotic therapy with initiation of cefepime. Patient seen cough still persist. Objective Data Objective Data Vital Signs: Vital Signs Temp Pulse Resp BP Pulse Ox O2 Del Method O2 Flow Rate 97.6 F L 81 20 H 133/66 H 93 Room Air 2 06/09/24 03:24 06/09/24 03:24 06/09/24 03:37 06/09/24 03:24 06/09/24 03:24 06/09/24 03:24 06/06/24 06:52 Oxygen Flow Rate (L/min) 2 Oxygen Delivery Method Room Air Weight: 103.1 kg Body Mass Index (BMI) 41.5 Intake & Output: Intake and Output for Last 24 Hours 06/07/24 06/08/24 06/09/24 23:59 23:59 23:59 Intake Total 680 / 1160 1720.00 / 1920.00 450 / 450 Output Total 3150 / 4000 3050 / 3750 1400 / 1400 Balance -2470 / -2840 -1330.00 / -1830.00 -950 / -950 Lab / Micro Data 06/08/24 05:25 06/09/24 06:25 Labs: Laboratory Results - last 24 hr 06/08/24 05:25: WBC 9.7, RBC 3.80 L, Hgb 11.5 L, Hct 35.8 L, MCV 94.2, MCH 30.3, MCHC 32.1, RDW Std Deviation 51.9 H, RDW Coeff of Ge 15.0 H, Plt Count 381, MPV 10.1, Immature Gran % (Auto) PHOTOLITH OPERATOR, Neut % (Auto) PHOTOLITH OPERATOR, Lymph % (Auto) PHOTOLITH OPERATOR, [place] % (Auto) PHOTOLITH OPERATOR, Eos % (Auto) PHOTOLITH OPERATOR, Baso % (Auto) PHOTOLITH OPERATOR, Absolute Neuts (auto) 5.0, Absolute Lymphs (auto) 3.02, Total Counted 100, Neutrophils % (Manual) 51, Lymphocytes % (Manual) 31, Monocytes % (Manual) 7, Eosinophils % (Manual) 6 H, Metamyelocytes % 3 H, Myelocytes % 2 H, Nucleated RBC % PHOTOLITH OPERATOR 06/09/24 06:25: Sodium 139, Potassium 4.4, Chloride 110 H, Carbon Dioxide 18.7 L, Anion Gap 11, BUN 9, Creatinine 1.18, Estim Creat Clear Calc 49.22 L, Est GFR (MDRD) Non-Af 49 L, BUN/Creatinine Ratio 8.0 L, Glucose 89, Calcium 9.1 Micro: Microbiology 06/08/24 10:21 Sputum, Expectorated/Coughed Gram Stain - Final 06/04/24 10:50 Urine Catheter - Catheter Urine Culture - Preliminary Pseudomonas spp Proteus mirabilis 06/04/24 11:19 Blood Culture (Wb) - Right Forearm Blood Culture - Preliminary No growth in 48 hours. 06/04/24 10:20 Blood Culture (Wb) - Anticubital Left Blood Culture - Preliminary No growth in 48 hours. 06/04/24 10:50 Urine Catheter - Cifuentes Legionella Antigen - Final 06/04/24 10:50 Urine Catheter - Cifuentes Streptococcus pneumoniae Antigen (M - Final Streptococcus pneumonia Ag 06/04/24 10:22 Mucosa - Nose SARS-CoV-2, Influenza & RSV (PCR) - Final Influenzae A Physical Exam Narrative GENERAL: cooperative HEENT: Atraumatic; normocephalic EYES; Anicteric, Normal Conjunctiva NECK; supple, normal thyroid, RESPIRATORY: Diminished to auscultation CARDIOVASCULAR: Regular S1 S2, GI: soft, normoactive bowel sounds, : No Renal angle tenderness; EXTREMITIES: No edema, no clubbing, MUSCULOSKELETAL: no muscle wasting NEURO: Awake; no lateralizing signs. SKIN: No Rash PSYCH; Flat affect Assessment & Plan Assessment/Plan (1) Pneumonia: PLAN: Plan Patient is a 73-year-old lady resident at an extended care facility who was sent to the emergency department with nausea vomiting as well as fever patient was found to be hypoxic on admission subsequent evaluation revealed community-acquired pneumonia and influenza A admitted to a monitored bed for subsequent management 1. Acute hypoxia ? Due to combination of community-acquired pneumonia as well as influenza A placed on supplemental oxygen with treatment of the underlying etiology ? 06/29/2024; patient back on room air 2. Pneumonia - Suspected to be secondary to streptococcal pneumonia, Blood and sputum cultures sent. Patient placed on Rocephin and Zithromax and placed on oxygen titrated to keep Pulse Ox greater than 90 ? 06/06/2024; patient streptococcal pneumonia antigen came back positive 3. Acute influenza A infection ?Did continue with symptom management; patient is outside the window for Tamiflu ? 06/29/2024; patient has persistent cough added Omid Montes 4. Acute acute cystitis with Proteus and suspected Pseudomonas ? Secondary to presence of an indwelling Cifuentes catheter patient started on Rocephin culture sent ? 06/06/2024; urine cultures positive for gram-negative rods suspected to be Pseudomonas and a second gram-negative yvette organisms final identification sensitivities pending. Given the suspicion of possible Pseudomonas, added Levaquin and discontinued azithromycin ? 06/07/2024Patient seen urine cultures positive for Proteus as well as suspected Pseudomonas in the urine final identification and sensitivities pending ? 06/08/2024; final urine cultures pending ? 06/09/2024;Patient urine cultures have resulted growing Pseudomonas and Proteus. Adjusted patient antibiotic therapy with initiation of cefepime. 5. Chronic kidney disease stage IIIb ? Monitoring with daily BMPs ? 06/06/2024; BMP ordered result pending 6. Hypertension ? Blood pressure controlled, home medications continued with dose adjustment as needed 7. Bipolar disorder with anxiety - did continue with psychotropic medications 8. Chronic pain -Patient with buprenorphine patch -Also gets oxycodone every 6 as needed based on patient's home med reconciliation so we will continue this 9. GERD -Continue famotidine 10. Morbid obesity -BMI documented as 43.7 kg/m? at time of admission; Complicates treatment, prognosis, outcomes, Recommend weight loss and lifestyle changes 11. DVT prophylaxis ? On enoxaparin 12. Hypokalemia -Corrected per protocol Time spent in the patient's overall evaluation,decision-making process, review of diagnostic data, adjustment of management, discussion with other providers, nursing nursing and ancillary staff involved in patient's care documentation, 36 minutes Charges/Coding Visit Charges Inpatient E&M: 69391 [facility] Hosp L2
--- NOTE | 2024-06-09 08:37 | CPS ---
patient not willing to use chest vest. She would like to continue to use the PEP instead states she is not sure if she will be able to tolerate it.
[2024-06-09] MEDS: Ceftriaxone 2 GM in 0.9% Normal Saline (50mL MB+) 50 ML IV (08:52)
[2024-06-09] MEDS: Enoxaparin 40 MG/0.4 ML Syringe SC (08:52)
[2024-06-09] MEDS: LORazepam 0.5 MG Tablet PO ×2 (08:55→22:14)
[2024-06-09] MEDS: amLODIPine 5 MG Tablet PO (08:55)
[2024-06-09] MEDS: Famotidine 20 MG Tablet 40 MG PO (08:55)
[2024-06-09] MEDS: Potassium Chloride Oral Tablet 20 MEQ PO ×2 (08:55→16:25)
[2024-06-09] MEDS: guaiFENesin 1,200 MG Tablet 1200 MG PO ×2 (08:56→22:15)
[2024-06-09] MEDS: Menthol/Lanolin/Calamine/Znox 113 GM Tube 1 APPLIC TOPICAL ×2 (08:57→22:16)
[2024-06-09] MEDS: ARIPiprazole 5 MG Tablet PO (09:03)
[2024-06-09] MEDS: Sodium Bicarbonate 650 MG Tablet 325 MG PO (09:03)
[2024-06-09] MEDS: DULoxetine Hcl 20 MG Capsule PO (09:04)
[2024-06-09] MEDS: buPROPion (XL) 300 MG TABLET.XL PO (09:04)
[2024-06-09] MEDS: MEDROXYPROGESTERONE ACETATE 10 MG TABLET PO (09:04)
[2024-06-09] MEDS: Cefepime HCl 1 GM in 0.9% Normal Saline (50mL MB+) 50 ML IV ×2 (11:42→22:15)
[2024-06-09] MEDS: traZODone 50 MG Tablet 75 MG PO (22:15)
[2024-06-10] VITALS (9 sets, daily range): BP systolic 111–142; BP diastolic 55–67; PULSE 72–93; RESP 16–23; TEMP 36.7–37.1; O2SAT 93–96
[2024-06-10] MEDS: guaiFENesin/Codeine 5 ML UDC PO ×2 (04:16→22:03)
[2024-06-10] MEDS: 0.9% Saline Lock 10 ML Syringe IV ×3 (04:16→23:25)
[2024-06-10] MEDS: Nystatin Powder 15gm Bottle 1 APPLIC TOPICAL ×2 (05:27→22:02)
--- NOTE | 2024-06-10 07:28 | CPS ---
Pt continues to refuse Vest Therapy but will do PEP therapy.
[2024-06-10] MEDS: Ipratropium/Albuterol Sulfate 3 ML AMPUL.NEB INHALATION ×4 (07:32→19:32)
--- NOTE | 2024-06-10 09:15 | PCM.PN.HOSP ---
Reason for Visit Reason for Visit: Diagnoses Pneumonia, unspecified organism (06/04/24) Subjective Subjective Patient seen, cough still persist. Objective Data Objective Data Vital Signs: Vital Signs Temp Pulse Resp BP Pulse Ox O2 Del Method O2 Flow Rate 98.3 F 72 22 H 135/55 H 95 Room Air 2 06/10/24 04:00 06/10/24 07:28 06/10/24 07:28 06/10/24 04:00 06/10/24 07:28 06/10/24 07:28 06/06/24 06:52 Oxygen Flow Rate (L/min) 2 Oxygen Delivery Method Room Air Weight: 103.1 kg Body Mass Index (BMI) 41.5 Intake & Output: Intake and Output for Last 24 Hours 06/08/24 06/09/24 06/10/24 23:59 23:59 23:59 Intake Total 1720.00 / 1920.00 950 / 950 Output Total 3050 / 3750 2120 / 2620 1500 / 1500 Balance -1330.00 / -1830.00 -1170 / -1670 -1500 / -1500 Lab / Micro Data 06/08/24 05:25 06/09/24 06:25 Micro: Microbiology 06/04/24 10:50 Urine Catheter - Catheter Urine Culture - Preliminary Pseudomonas spp Proteus mirabilis GPC Poss Enterococcus sp Staphylococcus aureus 06/04/24 10:20 Blood Culture (Wb) - Anticubital Left Blood Culture - Final No growth in 5 days. 06/04/24 11:19 Blood Culture (Wb) - Right Forearm Blood Culture - Final No growth in 5 days. 06/08/24 10:21 Sputum, Expectorated/Coughed Gram Stain - Final 06/04/24 10:50 Urine Catheter - Cifuentes Legionella Antigen - Final 06/04/24 10:50 Urine Catheter - Cifuentes Streptococcus pneumoniae Antigen (M - Final Streptococcus pneumonia Ag 06/04/24 10:22 Mucosa - Nose SARS-CoV-2, Influenza & RSV (PCR) - Final Influenzae A Physical Exam Narrative GENERAL: cooperative HEENT: Atraumatic; normocephalic EYES; Anicteric, Normal Conjunctiva NECK; supple, normal thyroid, RESPIRATORY: Diminished to auscultation CARDIOVASCULAR: Regular S1 S2, GI: soft, normoactive bowel sounds, : No Renal angle tenderness; EXTREMITIES: No edema, no clubbing, MUSCULOSKELETAL: no muscle wasting NEURO: Awake; no lateralizing signs. SKIN: No Rash PSYCH; Flat affect Assessment & Plan Assessment/Plan (1) Pneumonia: PLAN: Plan Patient is a 73-year-old lady resident at an extended care facility who was sent to the emergency department with nausea vomiting as well as fever patient was found to be hypoxic on admission subsequent evaluation revealed community-acquired pneumonia and influenza A admitted to a monitored bed for subsequent management 1. Acute hypoxia ? Due to combination of community-acquired pneumonia as well as influenza A placed on supplemental oxygen with treatment of the underlying etiology ? 06/06/2024; patient back on room air ?06/10/2024; still has a persistent cough 2. Pneumonia - Suspected to be secondary to streptococcal pneumonia, Blood and sputum cultures sent. Patient placed on Rocephin and Zithromax and placed on oxygen titrated to keep Pulse Ox greater than 90 ? 06/06/2024; patient streptococcal pneumonia antigen came back positive 3. Acute influenza A infection ?Did continue with symptom management; patient is outside the window for Tamiflu ? 06/09/2024; patient has persistent cough added Omid Montes 4. Acute acute cystitis with Proteus and suspected Pseudomonas ? Secondary to presence of an indwelling Cifuentes catheter patient started on Rocephin culture sent ? 06/06/2024; urine cultures positive for gram-negative rods suspected to be Pseudomonas and a second gram-negative yvette organisms final identification sensitivities pending. Given the suspicion of possible Pseudomonas, added Levaquin and discontinued azithromycin ? 06/07/2024Patient seen urine cultures positive for Proteus as well as suspected Pseudomonas in the urine final identification and sensitivities pending ? 06/08/2024; final urine cultures pending ? 06/09/2024;Patient urine cultures have resulted growing Pseudomonas and Proteus. Adjusted patient antibiotic therapy with initiation of cefepime. ?; consult was placed to ID 5. Chronic kidney disease stage IIIb ? Monitoring with daily BMPs ? 06/06/2024; BMP ordered result pending 6. Hypertension ? Blood pressure controlled, home medications continued with dose adjustment as needed 7. Bipolar disorder with anxiety - did continue with psychotropic medications 8. Chronic pain -Patient with buprenorphine patch -Also gets oxycodone every 6 as needed based on patient's home med reconciliation so we will continue this 9. GERD -Continue famotidine 10. Morbid obesity -BMI documented as 43.7 kg/m? at time of admission; Complicates treatment, prognosis, outcomes, Recommend weight loss and lifestyle changes 11. DVT prophylaxis ? On enoxaparin 12. Hypokalemia -Corrected per protocol Time spent in the patient's overall evaluation,decision-making process, review of diagnostic data, adjustment of management, discussion with other providers, nursing nursing and ancillary staff involved in patient's care documentation, 36 minutes Charges/Coding Visit Charges Inpatient E&M: 36593 Subs Hosp L2
[2024-06-10] MEDS: Potassium Chloride Oral Tablet 20 MEQ PO ×2 (09:27→18:14)
[2024-06-10] MEDS: amLODIPine 5 MG Tablet PO (09:28)
[2024-06-10] MEDS: guaiFENesin 1,200 MG Tablet 1200 MG PO ×2 (09:28→22:02)
[2024-06-10] MEDS: buPROPion (XL) 300 MG TABLET.XL PO (09:28)
[2024-06-10] MEDS: MEDROXYPROGESTERONE ACETATE 10 MG TABLET PO (09:28)
[2024-06-10] MEDS: DULoxetine Hcl 20 MG Capsule PO (09:28)
[2024-06-10] MEDS: ARIPiprazole 5 MG Tablet PO (09:28)
[2024-06-10] MEDS: LORazepam 0.5 MG Tablet PO ×2 (09:28→22:02)
[2024-06-10] MEDS: Famotidine 20 MG Tablet 40 MG PO (09:28)
[2024-06-10] MEDS: Menthol/Lanolin/Calamine/Znox 113 GM Tube 1 APPLIC TOPICAL ×2 (09:28→22:02)
[2024-06-10] MEDS: Enoxaparin 40 MG/0.4 ML Syringe SC (09:29)
[2024-06-10] MEDS: Sodium Bicarbonate 650 MG Tablet 325 MG PO (09:29)
[2024-06-10] MEDS: Cefepime HCl 1 GM in 0.9% Normal Saline (50mL MB+) 50 ML IV ×2 (09:30→23:24)
[2024-06-10 10:13] LABS: Hematocrit 39.4 % (37-47); Hemoglobin 12.5 g/dL (12.0-15.0); Mean Corp Hgb Conc 31.7 g/dL (32-36); Mean Corpuscular Hgb 30.2 pg (27.0-32.0); Mean Corpuscular Volume 95.2 fL (81-99); Mean Platelet Vol. 9.3 fl (6.2-12.0); Platelet Count 505 K/mm3 (150-450); RBC Distribution Width CV 15.1 % (11.6-14.6); RBC Distribution Width SD 53.5 fl (35.1-43.9); Red Blood Count 4.14 M/mm3 (4.2-5.4); White Blood Count 8.4 K/mm3 (4.4-11.0)
[2024-06-10 10:45] LABS: Magnesium 2.2 mg/dL (1.5-2.2); Phosphorus 4.4 mg/dL (2.7-4.5)
[2024-06-10 10:53] LABS: ALB/GLOB Ratio 0.9 RATIO (0.9-2.4); AST(SGOT) 24 U/L (<=31); Alanine Aminotransfer ALT/SGPT 14 U/L (<=34); Albumin, Serum 3.5 g/dL (3.4-4.8); Alkaline Phosphatase 87 U/L (35-104); Anion Gap 14 (5-15); BUN 12 mg/dL (4-19); BUN/Creat Ratio 8.8 RATIO (10-20); Calcium,Total 9.1 mg/dL (7.6-11.0); Carbon Dioxide 17.6 mmol/L (21.0-32.0); Chloride 117 mmol/L (98-108); Creatinine, Serum 1.32 mg/dL (0.70-1.20); EST Glomerular Filtration Rate 43 (>60); Glucose 214 mg/dL (70-99); Potassium 4.3 mmol/L (3.3-5.1); Protein, Total 7.5 g/dL (5.9-8.4); Sodium Level 148 mmol/L (133-145); Total Bilirubin 0.32 mg/dL (0.00-1.30)
[2024-06-10] MEDS: traZODone 50 MG Tablet 75 MG PO (22:01)
[2024-06-10] MEDS: oxyCODONE 5 MG Tablet 10 MG PO (22:02)
[2024-06-11] VITALS (8 sets, daily range): BP systolic 134–142; BP diastolic 60–77; PULSE 77–94; RESP 16–20; TEMP 36.6–36.9; O2SAT 95–96
[2024-06-11] MEDS: Nystatin Powder 15gm Bottle 1 APPLIC TOPICAL ×3 (05:23→22:47)
[2024-06-11 06:58] LABS: Hematocrit 36.8 % (37-47); Hemoglobin 11.7 g/dL (12.0-15.0); Mean Corp Hgb Conc 31.8 g/dL (32-36); Mean Corpuscular Hgb 30.4 pg (27.0-32.0); Mean Corpuscular Volume 95.6 fL (81-99); Mean Platelet Vol. 10.9 fl (6.2-12.0); POSITIVE COUNT YES; POSITIVE MORPHOLOGY YES; RBC Distribution Width CV 15.3 % (11.6-14.6); RBC Distribution Width SD 53.6 fl (35.1-43.9); Red Blood Count 3.85 M/mm3 (4.2-5.4); White Blood Count 8.2 K/mm3 (4.4-11.0)
[2024-06-11 07:16] LABS: Anion Gap 13 (5-15); BUN 13 mg/dL (4-19); BUN/Creat Ratio 9.3 RATIO (10-20); Calcium,Total 8.9 mg/dL (7.6-11.0); Carbon Dioxide 17.1 mmol/L (21.0-32.0); Chloride 109 mmol/L (98-108); Creatinine, Serum 1.38 mg/dL (0.70-1.20); EST Glomerular Filtration Rate 41 (>60); Estimated Creatinine Clearance 42.09 ml/min (50-250); Glucose 94 mg/dL (70-99); Potassium 4.9 mmol/L (3.3-5.1); Sodium Level 139 mmol/L (133-145)
[2024-06-11 07:17] LABS: Differential Indicated MANUAL DIFF
[2024-06-11] MEDS: Ipratropium/Albuterol Sulfate 3 ML AMPUL.NEB INHALATION ×4 (07:17→20:35)
[2024-06-11 08:25] LABS: Eosinophil 3 % (0-5); Lymphocyte 47 % (19-41); Metamyelocyte 2 % (0-1); Monocyte 7 % (0-10); Myelocyte 1 % (0-0); Neutrophil-Band 2 % (0-5); Neutrophil-Segmented 38 % (47-70); Red Cell Morphology NORM C+C NORMAL (NORM C&C); Total Cells Counted 100 (MANUAL DIFF)
[2024-06-11 08:26] LABS: Platelet Estimate ADEQUATE (ADEQ)
[2024-06-11 08:27] LABS: Absolute Lymphocyte Count 3.85 X10^3/uL (0.83-4.51); Absolute Neutrophil Count 3.3 X10^3/uL (2.0-7.7)
[2024-06-11] MEDS: ARIPiprazole 5 MG Tablet PO (09:07)
[2024-06-11] MEDS: buPROPion (XL) 300 MG TABLET.XL PO (09:07)
[2024-06-11] MEDS: Sodium Bicarbonate 650 MG Tablet 325 MG PO (09:07)
[2024-06-11] MEDS: Menthol/Lanolin/Calamine/Znox 113 GM Tube 1 APPLIC TOPICAL ×2 (09:08→22:46)
[2024-06-11] MEDS: DULoxetine Hcl 20 MG Capsule PO (09:08)
[2024-06-11] MEDS: Enoxaparin 40 MG/0.4 ML Syringe SC (09:08)
[2024-06-11] MEDS: amLODIPine 5 MG Tablet PO (09:08)
[2024-06-11] MEDS: Cefepime HCl 1 GM in 0.9% Normal Saline (50mL MB+) 50 ML IV ×2 (09:09→22:47)
[2024-06-11] MEDS: Potassium Chloride Oral Tablet 20 MEQ PO ×2 (09:09→17:36)
[2024-06-11] MEDS: LORazepam 0.5 MG Tablet PO ×2 (09:09→22:46)
[2024-06-11] MEDS: guaiFENesin 1,200 MG Tablet 1200 MG PO ×2 (09:10→22:47)
[2024-06-11] MEDS: MEDROXYPROGESTERONE ACETATE 10 MG TABLET PO (09:10)
[2024-06-11] MEDS: Famotidine 20 MG Tablet 40 MG PO (09:11)
--- NOTE | 2024-06-11 09:38 | PN.HOSP_ITS ---
Reason for Visit Reason for Visit: Diagnoses Pneumonia, unspecified organism (06/04/24) Subjective Subjective Feeling well. Objective Data Objective Data Vital Signs: Vital Signs Temp Pulse Resp BP Pulse Ox O2 Del Method O2 Flow Rate 36.8 C 84 16 142/64 H 95 Room Air 2 06/11/24 03:30 06/11/24 03:30 06/11/24 03:30 06/11/24 03:30 06/11/24 03:30 06/11/24 03:30 06/06/24 06:52 Oxygen Flow Rate (L/min) 2 Oxygen Delivery Method Room Air Weight: 103.1 kg Body Mass Index (BMI) 41.5 Intake & Output: Intake and Output for Last 24 Hours 06/09/24 06/10/24 06/11/24 23:59 23:59 23:59 Intake Total 950 / 950 100 / 100 Output Total 2120 / 2620 1500 / 2000 1600 / 1600 Balance -1170 / -1670 -1400 / -1900 -1600 / -1600 Lab / Micro Data 06/11/24 05:40 06/11/24 05:40 Labs: Laboratory Results - last 24 hr 06/10/24 10:03: WBC 8.4, RBC 4.14 L, Hgb 12.5, Hct 39.4, MCV 95.2, MCH 30.2, M CHC 31.7 L, RDW Std Deviation 53.5 H, RDW Coeff of Ge 15.1 H, Plt Count 505 H, MPV 9.3, Sodium 148 H, Potassium 4.3, Chloride 117 H, Carbon Dioxide 17.6 L, Anion Gap 14, BUN 12, Creatinine 1.32 H, Estim Creat Clear Calc 44.00 L, Est GFR (MDRD) Non-Af 43 L, BUN/Creatinine Ratio 8.8 L, Glucose 214 H, Calcium 9.1, Phosphorus 4.4, Magnesium 2.2, Total Bilirubin 0.32, AST 24, ALT 14, Alkaline Phosphatase 87, Total Protein 7.5, Albumin 3.5, Globulin 4.0, Albumin/Globulin Ratio 0.9 06/11/24 05:40: WBC 8.2, RBC 3.85 L, Hgb 11.7 L, Hct 36.8 L, MCV 95.6, MCH 30.4, MCHC 31.8 L, RDW Std Deviation 53.6 H, RDW Coeff of Ge 15.3 H, Plt Count TNP, MPV 10.9, Neut % (Auto) Not Reportable, Absolute Neuts (auto) 3.3, Absolute Lymphs (auto) 3.85, Total Counted 100, Neutrophils % (Manual) 38 L, Band Neutrophils % 2, Lymphocytes % (Manual) 47 H, Monocytes % (Manual) 7, Eosinophils % (Manual) 3, Metamyelocytes % 2 H, Myelocytes % 1 H, Diff Path Review July, Platelet Estimate ADEQUATE, RBC Morphology NORM C+C, Sodium 139, Potassium 4.9, Chloride 109 H, Carbon Dioxide 17.1 L, Anion Gap 13, BUN 13, Creatinine 1.38 H, Estim Creat Clear Calc 42.09 L, Est GFR (MDRD) Non-Af 41 L, B UN/Creatinine Ratio 9.3 L, Glucose 94, Calcium 8.9 Micro: Microbiology 06/04/24 10:50 Urine Catheter - Catheter Urine Culture - Final Pseudomonas spp Proteus mirabilis Enterococcus faecalis Meth. resistant Staph. aureus 06/08/24 10:21 Sputum, Expectorated/Coughed Gram Stain - Final 06/08/24 10:21 Sputum, Expectorated/Coughed Respiratory Culture - Final Presumptive C albicans 06/04/24 10:20 Blood Culture (Wb) - Anticubital Left Blood Culture - Final No growth in 5 days. 06/04/24 11:19 Blood Culture (Wb) - Right Forearm Blood Culture - Final No growth in 5 days. 06/04/24 10:50 Urine Catheter - Cifuentes Legionella Antigen - Final 06/04/24 10:50 Urine Catheter - Cifuentes Streptococcus pneumoniae Antigen (M - Final Streptococcus pneumonia Ag 06/04/24 10:22 Mucosa - Nose SARS-CoV-2, Influenza & RSV (PCR) - Final Influenzae A Physical Exam Const alert and no apparent distress HEENT head/scalp atraumatic and moist oral mucous membranes Neck no lymphadenopathy Resp normal respiratory effort and no retractions Resp Narrative: coarse breath sounds bilaterally. Cardio regular rate, regular rhythm, S1 normal heart sound and S2 normal heart sound GI normal to inspection, nondistended, normoactive bowel sounds, soft to palpation, non-tender and non-distended Neuro oriented x3, CN's II-XII intact bilaterally, moves all extremities and no focal motor deficits Sensorium / Orientation: awake and alert Assessment & Plan Assessment/Plan (1) Pneumonia: PLAN: Strep pneumonia on urinary antigen for 06/04 on cefepime since the (previously CTX and azithromycin from the ) add pulmonary toilet. (2) Influenza A: PLAN: was not treated during this hospitalization. (3) UTI (urinary tract infection): PLAN: UCx from 06/04, finalized this AM +Pseudomonas sp, proteus mirabilis, Enterococcus, MRSA Doubt MRSA true pathogen and more likely a contaminant. DC with augmentin upon discharge PLAN: Plan Obesity class III VTE prophylaxis: LMWH. Dispostion: back to [facility] when medically ready. Charges/Coding Visit Charges Inpatient E&M: 97405 Subs Hosp L2
--- NOTE | 2024-06-11 15:06 | PCM.CONS.GEN ---
Assessment & Plan Assessment/Plan (1) UTI (urinary tract infection): (2) Influenza A: (3) Acute hypoxemic respiratory failure: (4) Pneumonia: PLAN: Wbc now normal. Sputum cx with trey. Strep pneumo UAg (+). Ucx with pseudomonas, proteus, enterococcus, MRSA. Flu (+) on admit. Was not given tamiflu. Bcx neg. Given overall improvement, will cont cefepime. Ucx likely chronic colonization given indwelling lee. Will follow, thank you HPI Consult Data Date of Consult: 06/11/24 HPI Narrative Reason for Consultation: pneumonia HPI Narrative: YENI BROOKS, is a 73 F with h/o CKD, OA, bipolar, chronic lee, presented [facility] with acute onset fever, n/v. Reports a few weeks of increased cough with minimal sputum and some dyspnea. Came to ED, admitted on azithro and ceftriaxone. Now on cefepime, feeling better. Full ROS performed and neg except as noted above. [facility] Medical History MRSA (methicillin resistant staph aureus) culture positive History of falling Anxiety disorder, unspecified Bipolar disorder, current episode manic without psychotic features, unspecified Major depressive disorder, single episode, mild Neuromuscular dysfunction of bladder, unspecified Noninfective gastroenteritis and colitis, unspecified Osteoarthritis of knee, unspecified Secondary hyperparathyroidism of renal origin Vitamin D deficiency, unspecified Localized edema Chronic kidney disease, stage 3b SOB (shortness of breath) Stage 3 chronic kidney disease Chronic UTI Hypertension Home Medications ?Medication ?Instructions ?Recorded ?Last Taken ?Type amlodipine 5 mg tablet 5 mg PO DAILY HYPERTENSION 12/06/19 Unknown History aripiprazole 5 mg tablet 5 mg PO DAILY BIPOLAR 12/06/19 Unknown History bupropion HCl 300 mg 24 hr tablet, 300 mg PO DAILY DEPRESSION 12/06/19 Unknown History extended release cholecalciferol (vitamin D3) 25 25 mcg PO DAILY SUPPLEMENT 12/06/19 Unknown History mcg (1,000 unit) tablet lorazepam 0.5 mg tablet 0.5 mg PO BID 12/06/19 Unknown History medroxyprogesterone 10 mg tablet 10 mg PO DAILY 12/06/19 Unknown History sodium bicarbonate 325 mg tablet 325 mg PO DAILY SUPPLEMENT 12/06/19 Unknown History acetaminophen 500 mg tablet 1,000 mg PO Q6H PRN PAIN 1-5 06/04/24 Unknown History benzonatate 100 mg capsule 100 mg PO TID 06/04/24 Unknown History bisacodyl 10 mg rectal suppository 10 mg [place] DAILY PRN constipation 06/04/24 Unknown History buprenorphine 7.5 mcg/hour weekly 1 patch topical MO 06/04/24 Unknown History transdermal patch calcium 500 mg (as 2 tab PO DAILY 06/04/24 Unknown History carbonate)-vitamin D3 5 mcg (200 unit) tablet (Oyster Shell Calcium-Vitamin D3) carbamide peroxide 6.5 % ear drops 5 drp EACH EAR DAILY PRN EAR WAX 06/04/24 Unknown History (Clearcanal Earwax Softener) BUILD UP cranberry fruit 450 mg tablet 450 mg PO DAILY SUPPLEMENT 06/04/24 Unknown History (cranberry) duloxetine 20 mg capsule,delayed 20 mg PO DAILY 06/04/24 Unknown History release famotidine 40 mg tablet 40 mg PO DAILY 06/04/24 Unknown History hydrocortisone 1 % topical cream 1 applic topical BID PRN BILATERAL 06/04/24 Unknown History (Ala-Dima) KNEE PAIN magnesium hydroxide 400 mg/5 mL 30 ml PO DAILY PRN constipation 06/04/24 Unknown History oral suspension (Dulcolax (magnesium hydroxide)) mineral oil (Fleet Mineral Oil 118 ml [place] DAILY PRN constipation 06/04/24 Unknown History enema) nystatin 100,000 unit/gram topical 1 applic topical TID SKIN 06/04/24 Unknown History cream IRRITATION nystatin 100,000 unit/gram topical 1 applic topical TID SKIN 06/04/24 Unknown History powder (Nyamyc) IRRITATION oxycodone 10 mg tablet 10 mg PO Q6H PRN moderate TO 06/04/24 Unknown History SEVERE pain polyethylene glycol 3350 17 17 g PO DAILY PRN constipation 06/04/24 Unknown History gram/dose oral powder (ClearLax) trazodone 50 mg tablet 75 mg PO DAILY MAJOR DEPRESSIVE 06/04/24 Unknown History DISORDER Allergy/AdvReac Type Severity Reaction Status Date / Time latex AdvReac rash Verified 06/04/24 10:08 Social History Smoking Status: Never smoker Physical Exam Const alert and no apparent distress General Appearance: cooperative HEENT normocephalic and head/scalp atraumatic Eyes PERRL and EOMs intact bilaterally Neck supple and No nodes Resp clear to auscultation bilaterally Auscultation: diminished lung sounds Cardio regular rate and regular rhythm GI soft to palpation, non-tender and non-distended Extremity General Extremity: edema Skin no rashes or lesions noted Neuro CN's II-XII intact bilaterally Lab / Micro Data Attestation: I reviewed the patient's lab results. 06/11/24 05:40 06/11/24 05:40 Labs: Laboratory Results - last 24 hr 06/11/24 05:40: WBC 8.2, RBC 3.85 L, Hgb 11.7 L, Hct 36.8 L, MCV 95.6, MCH 30.4, MCHC 31.8 L, RDW Std Deviation 53.6 H, RDW Coeff of Ge 15.3 H, Plt Count TNP, MPV 10.9, Neut % (Auto) Not Reportable, Absolute Neuts (auto) 3.3, Absolute Lymphs (auto) 3.85, Total Counted 100, Neutrophils % (Manual) 38 L, Band Neutrophils % 2, Lymphocytes % (Manual) 47 H, Monocytes % (Manual) 7, Eosinophils % (Manual) 3, Metamyelocytes % 2 H, Myelocytes % 1 H, Diff Path Review May foll, Platelet Estimate ADEQUATE, RBC Morphology NORM C+C, Sodium 139, Potassium 4.9, Chloride 109 H, Carbon Dioxide 17.1 L, Anion Gap 13, BUN 13, Creatinine 1.38 H, Estim Creat Clear Calc 42.09 L, Est GFR (MDRD) Non-Af 41 L, BUN/Creatinine Ratio 9.3 L, Glucose 94, Calcium 8.9 Micro: Microbiology 06/04/24 10:50 Urine Catheter - Catheter Urine Culture - Final Pseudomonas spp Proteus mirabilis Enterococcus faecalis Meth. resistant Staph. aureus 06/08/24 10:21 Sputum, Expectorated/Coughed Gram Stain - Final 06/08/24 10:21 Sputum, Expectorated/Coughed Respiratory Culture - Final Presumptive C albicans
[2024-06-11] MEDS: Buprenorphine 5 MCG PATCH.TDWK 1 PATCH TD (17:58)
--- NOTE | 2024-06-11 19:03 | PCM.PN.ID ---
Physical Exam Narrative Feeling ok, no fever, some abd pain Const alert and no apparent distress Resp normal air movement and clear to auscultation bilaterally Cardio regular rate and regular rhythm GI soft to palpation, non-tender and non-distended Skin Skin Narrative: no new rash ID ID: Route of nutrition/ use of supplements: [] Nutritional Intake: [] IV Site: [] Cifuentes Catheter: []
[2024-06-11] MEDS: traZODone 50 MG Tablet 75 MG PO (22:46)
[2024-06-11] MEDS: oxyCODONE 5 MG Tablet 10 MG PO (22:47)
[2024-06-11] MEDS: guaiFENesin/Codeine 5 ML UDC PO (22:47)
[2024-06-12] VITALS (7 sets, daily range): BP systolic 120–147; BP diastolic 52–70; PULSE 78–88; RESP 15–19; TEMP 36.6–37; O2SAT 94–100
[2024-06-12] MEDS: Nystatin Powder 15gm Bottle 1 APPLIC TOPICAL ×2 (06:01→15:11)
[2024-06-12 06:12] LABS: Absolute Lymphocyte Count 3.58 X10^3/uL (0.83-4.51); Absolute Neutrophil Count 3.1 X10^3/uL (2.0-7.7); Basophil# 0.04 X10^3/uL; Basophil% 0.5 % (0-1); Eosinophil# 0.36 X10^3/uL; Eosinophils% 4.5 % (0-5); Hematocrit 36.6 % (37-47); Hemoglobin 11.7 g/dL (12.0-15.0); Lymphocyte # 3.58 X10^3/ul (0.83-4.51); Lymphocyte % 44.4 % (19-41); Mean Corpuscular Hgb 29.9 pg (27.0-32.0); Mean Corpuscular Volume 93.6 fL (81-99); Mean Platelet Vol. 9.3 fl (6.2-12.0); Monocyte# 0.62 X10^3/uL; Monocyte% 7.7 % (0-10); NRBC Flagged by Analyzer 0 % (0-5); Neutrophil % 38.4 % (47-70); Platelet Count 507 K/mm3 (150-450); RBC Distribution Width CV 15.1 % (11.6-14.6); RBC Distribution Width SD 51.8 fl (35.1-43.9); Red Blood Count 3.91 M/mm3 (4.2-5.4); White Blood Count 8.1 K/mm3 (4.4-11.0)
[2024-06-12 06:31] LABS: Anion Gap 10 (5-15); BUN 12 mg/dL (4-19); BUN/Creat Ratio 8.8 RATIO (10-20); Calcium,Total 9.2 mg/dL (7.6-11.0); Carbon Dioxide 18.7 mmol/L (21.0-32.0); Chloride 111 mmol/L (98-108); Creatinine, Serum 1.37 mg/dL (0.70-1.20); EST Glomerular Filtration Rate 41 (>60); Estimated Creatinine Clearance 42.39 ml/min (50-250); Glucose 91 mg/dL (70-99); Potassium 4.3 mmol/L (3.3-5.1); Sodium Level 140 mmol/L (133-145)
[2024-06-12] MEDS: Ipratropium/Albuterol Sulfate 3 ML AMPUL.NEB INHALATION ×3 (07:33→15:13)
[2024-06-12] MEDS: DULoxetine Hcl 20 MG Capsule PO (08:50)
[2024-06-12] MEDS: Enoxaparin 40 MG/0.4 ML Syringe SC (08:50)
[2024-06-12] MEDS: Famotidine 20 MG Tablet 40 MG PO (08:50)
[2024-06-12] MEDS: buPROPion (XL) 300 MG TABLET.XL PO (08:51)
[2024-06-12] MEDS: ARIPiprazole 5 MG Tablet PO (08:51)
[2024-06-12] MEDS: Sodium Bicarbonate 650 MG Tablet 325 MG PO (08:51)
[2024-06-12] MEDS: amLODIPine 5 MG Tablet PO (08:51)
[2024-06-12] MEDS: Potassium Chloride Oral Tablet 20 MEQ PO ×2 (08:52→17:47)
[2024-06-12] MEDS: guaiFENesin 1,200 MG Tablet 1200 MG PO (08:52)
[2024-06-12] MEDS: MEDROXYPROGESTERONE ACETATE 10 MG TABLET PO (08:52)
[2024-06-12] MEDS: guaiFENesin/Codeine 5 ML UDC PO (09:03)
[2024-06-12] MEDS: Menthol/Lanolin/Calamine/Znox 113 GM Tube 1 APPLIC TOPICAL (09:03)
[2024-06-12] MEDS: 0.9% Saline Lock 10 ML Syringe IV (09:03)
[2024-06-12] MEDS: LORazepam 0.5 MG Tablet PO (09:03)
[2024-06-12] MEDS: Cefepime HCl 1 GM in 0.9% Normal Saline (50mL MB+) 50 ML IV (09:04)
--- NOTE | 2024-06-12 09:12 | PN.HOSP_ITS ---
Reason for Visit Reason for Visit: Diagnoses Influenza due to other identified influenza virus with other respiratory manifestations (06/04/24) Pneumonia, unspecified organism (06/04/24) Acute respiratory failure with hypoxia (06/04/24) Urinary tract infection, site not specified (06/04/24) Subjective Subjective Feels good. Want to go home. Objective Data Objective Data Vital Signs: Vital Signs Temp Pulse Resp BP Pulse Ox O2 Del Method O2 Flow Rate 36.8 C 80 18 132/52 H 94 Room Air 2 06/12/24 03:00 06/12/24 03:00 06/12/24 03:00 06/12/24 03:00 06/12/24 03:00 06/12/24 03:00 06/06/24 06:52 Oxygen Flow Rate (L/min) 2 Oxygen Delivery Method Room Air Weight: 103.1 kg Body Mass Index (BMI) 41.5 Intake & Output: Intake and Output for Last 24 Hours 06/10/24 06/11/24 06/12/24 23:59 23:59 23:59 Intake Total 100 / 100 820 / 820 Output Total 1500 / 2000 2450 / 3050 1600 / 1600 Balance -1400 / -1900 -1630 / -2230 -1600 / -1600 Lab / Micro Data 06/12/24 05:29 06/12/24 05:29 Labs: Laboratory Results - last 24 hr 06/12/24 05:29: WBC 8.1, RBC 3.91 L, Hgb 11.7 L, Hct 36.6 L, MCV 93.6, MCH 29.9, MCHC 32.0, RDW Std Deviation 51.8 H, RDW Coeff of Ge 15.1 H, Plt Count 507 H, MPV 9.3, Immature Gran % (Auto) 4.500 H, Neut % (Auto) 38.4 L, Lymph % (Auto) 44.4 H, Stark % (Auto) 7.7, Eos % (Auto) 4.5, Baso % (Auto) 0.5, Absolute Neuts (auto) 3.1, Absolute Lymphs (auto) 3.58, Nucleated RBC % 0, Sodium 140, Potassium 4.3, Chloride 111 H, Carbon Dioxide 18.7 L, Anion Gap 10, BUN 12, C reatinine 1.37 H, Estim Creat Clear Calc 42.39 L, Est GFR (MDRD) Non-Af 41 L, B UN/Creatinine Ratio 8.8 L, Glucose 91, Calcium 9.2 Micro: Microbiology 06/04/24 10:50 Urine Catheter - Catheter Urine Culture - Final Pseudomonas spp Proteus mirabilis Enterococcus faecalis Meth. resistant Staph. aureus 06/08/24 10:21 Sputum, Expectorated/Coughed Gram Stain - Final 06/08/24 10:21 Sputum, Expectorated/Coughed Respiratory Culture - Final Presumptive C albicans 06/04/24 10:20 Blood Culture (Wb) - Anticubital Left Blood Culture - Final No growth in 5 days. 06/04/24 11:19 Blood Culture (Wb) - Right Forearm Blood Culture - Final No growth in 5 days. 06/04/24 10:50 Urine Catheter - Lee Legionella Antigen - Final 06/04/24 10:50 Urine Catheter - Lee Streptococcus pneumoniae Antigen (M - Final Streptococcus pneumonia Ag 06/04/24 10:22 Mucosa - Nose SARS-CoV-2, Influenza & RSV (PCR) - Final Influenzae A Physical Exam Const alert and no apparent distress Constitutional Narrative: up in bed. eating lunch. no respiratory distress. no conversational dyspnea. HEENT head/scalp atraumatic and moist oral mucous membranes Resp normal respiratory effort, no retractions, no use of accessory muscles and clear to auscultation bilaterally Cardio regular rate, regular rhythm, S1 normal heart sound and S2 normal heart sound GI normal to inspection, nondistended, normoactive bowel sounds, soft to palpation, non-tender and non-distended Extremity normal to inspection and full ROM Assessment & Plan Assessment/Plan (1) Pneumonia: PLAN: Strep pneumonia on urinary antigen for 06/04 on cefepime since the (previously CTX and azithromycin from the ) add pulmonary toilet. (2) Influenza A: PLAN: was not treated during this hospitalization. (3) UTI (urinary tract infection): PLAN: UCx from 06/04, finalized this 06/11. Not felt to be UTI by ID, but rather colonization given chronic lee. +Pseudomonas sp, proteus mirabilis, Enterococcus, MRSA Doubt MRSA true pathogen and more likely a contaminant. DC with augmentin upon discharge PLAN: Plan Obesity class III VTE prophylaxis: LMWH. Dispostion: back to [facility]
--- NOTE | 2024-06-12 15:01 | PCM.TXEXTCAR ---
Diet Diet Order/Speech Therapy: 06/11/24 13:36 Diet: Regular - No Added Salt Food consistency:: Mechanical (Minced/Moist) Liquid Consistency:: Regular/Thin Diet Comments: UPRIGHT POSITION FOR ALL INTAKE Routine Orders/Code Status Code Status: Full Code DC O2, CPAP, BIPAP needs Home O2 Discharge instructions: No Therapies Weight Bearing: Full weight bearing Physical Therapy: Eval and Treat Occupational Therapy: Eval and Treat Problem/Diagnosis (1) Pneumonia: Status: Acute Code(s): J18.9 - Pneumonia, unspecified organism Plan: Strep pneumonia on urinary antigen for 06/04 on cefepime since the (previously CTX and azithromycin from the ) add pulmonary toilet. (2) Influenza A: Status: Acute Code(s): J10.1 - Influenza due to other identified influenza virus with other respiratory manifestations Plan: was not treated during this hospitalization. (3) UTI (urinary tract infection): Status: Acute Code(s): N39.0 - Urinary tract infection, site not specified Plan: UCx from 06/04, finalized this 06/11. Not felt to be UTI by ID, but rather colonization given chronic lee. +Pseudomonas sp, proteus mirabilis, Enterococcus, MRSA Doubt MRSA true pathogen and more likely a contaminant. DC with augmentin upon discharge Plan Obesity class III VTE prophylaxis: LMWH. Dispostion: back to [facility] Allergies/Procedures Done in Hospital Allergies latex Adverse Reaction (Verified 06/04/24 10:08) rash Procedures: None Type of Care/Length of Stay Estimated LOS: Convalescent Care Less Than 30 days Type of Care Needed: Skilled Rehab Potential: Fair Prognosis: Good Additional Orders/Day of Discharge Day of Discharge: 06/12/24 Dietary and Speech Recommendations Dietitian Recommendations/Changes: Continue regular, no added salt diet due to [facility] history [facility] Discontinue 120ml EPHP with dinner due to improved appetite. Discharge Plan Admission Admit Date/Time: 06/04/24 13:43 Primary Reason for Your Visit: pneumonia Attending Provider: Pipo Bryant Primary Care Provider: Wang Díaz Consulting Providers: Mary Muniz; Aditya Rossi; Bean Dong Discharge Orders/Prescriptions Prescriptions: New guaifenesin [Mucus Relief ER] 1,200 mg Tablet Extended Release 12hr 1,200 mg PO BID Qty: 0 0RF amoxicillin-pot clavulanate 875-125 mg tablet 1 tab PO Q12H Qty: 10 0RF Continued bupropion HCl 300 mg tablet extended release 24 hr 300 mg PO DAILY aripiprazole 5 mg tablet 5 mg PO DAILY amlodipine 5 mg tablet 5 mg PO DAILY medroxyprogesterone 10 mg tablet 10 mg PO DAILY cholecalciferol (vitamin D3) 25 mcg (1,000 unit) tablet 25 mcg PO DAILY sodium bicarbonate 325 mg tablet 325 mg PO DAILY acetaminophen 500 mg tablet 1,000 mg PO Q6H PRN (Reason: PAIN 1-5) benzonatate 100 mg capsule 100 mg PO TID bisacodyl 10 mg suppository 10 mg [place] DAILY PRN (Reason: constipation) Rx Instructions: ADMINISTER IF NO BM 8 HOURS AFTER MOM ADMINISTRATION. buprenorphine 7.5 mcg/hour patch weekly 1 patch topical MO cranberry 450 mg tablet 450 mg PO DAILY Rx Instructions: administer with a meal Clearcanal Earwax Softener 6.5 % drops 5 drp EACH EAR DAILY PRN (Reason: EAR WAX BUILD UP) famotidine 40 mg tablet 40 mg PO DAILY duloxetine 20 mg capsule,delayed release(DR/EC) 20 mg PO DAILY hydrocortisone [Ala-Dima] 1 % cream 1 applic topical BID PRN (Reason: BILATERAL KNEE PAIN) magnesium hydroxide [Dulcolax (magnesium hydroxide)] 400 mg/5 mL suspension 30 ml PO DAILY PRN (Reason: constipation) Rx Instructions: ADMINISTER ONCE DAILY IF NO BM IN 3 CONSECUTIVE DAYS polyethylene glycol 3350 [ClearLax] 17 gram/dose powder 17 g PO DAILY PRN (Reason: constipation) Rx Instructions: MIX 17 GRAMS WITH 8 OUNCES OF WATER OR JUICE AND DRINK IN THE MORNING nystatin [Nyamyc] 100,000 unit/gram powder 1 applic topical TID Rx Instructions: APPLY TO GLUTEAL FOLDS EVERY SHIFT nystatin 100,000 unit/gram cream 1 applic topical TID calcium carbonate-vitamin D3 [Oyster Shell Calcium-Vit D3] 500 mg-5 mcg (200 unit) tablet 2 tab PO DAILY trazodone 50 mg tablet 75 mg PO DAILY mineral oil [Fleet Mineral Oil] Enema 118 ml LA DAILY PRN (Reason: constipation) Rx Instructions: ADMINISTER IF NO BM 8 HOURS AFTER RECIEVING SUPPOSITORY. IF NO BM WITHIN 1 HOUR NOTIFY MD. discard any unused portion Discontinued lorazepam 0.5 mg tablet 0.5 mg PO BID oxycodone 10 mg tablet 10 mg PO Q6H PRN (Reason: moderate TO SEVERE pain ) Referrals / Follow Up: Wang Díaz MD [Primary Care Provider] - Within 2 Weeks Disposition Disposition (needs filled in before D/C Order can be placed): NonSkilled NH/Intermed Care
--- NOTE | 2024-06-12 15:08 | PCM.DC.SUM ---
Providers Date of Admission: 06/04/24 Primary Care Physician: Dr. Wang Díaz MD Consultations 06/09/24 12:21 Consult: Infectious Disease Routine Consulting Provider: Aditya Rossi Reason for Consult: Polymicrobial complicated UTI EMERGENT Consult: No MD Notified: Yes Date Notified: 06/11/24 Time Notified: 06:32 Method of Notification: Text Reason For Visit: PNEUMONIA Diagnosis Discharge Diagnosis (1) Pneumonia: Status: Acute Code(s): J18.9 - Pneumonia, unspecified organism Plan: Strep pneumonia on urinary antigen for 06/04 on cefepime since the (previously CTX and azithromycin from the ) add pulmonary toilet. (2) Influenza A: Status: Acute Code(s): J10.1 - Influenza due to other identified influenza virus with other respiratory manifestations Plan: was not treated during this hospitalization. (3) UTI (urinary tract infection): Status: Acute Code(s): N39.0 - Urinary tract infection, site not specified Plan: UCx from 06/04, finalized this 06/11. Not felt to be UTI by ID, but rather colonization given chronic lee. +Pseudomonas sp, proteus mirabilis, Enterococcus, MRSA Doubt MRSA true pathogen and more likely a contaminant. DC with augmentin upon discharge Plan Obesity class III VTE prophylaxis: LMWH. Dispostion: back to [facility] Medications at Discharge Home Medications amlodipine 5 mg tablet 5 mg PO DAILY HYPERTENSION 12/06/19 aripiprazole 5 mg tablet 5 mg PO DAILY BIPOLAR 12/06/19 bupropion HCl 300 mg 24 hr tablet, extended release 300 mg PO DAILY DEPRESSION 12/06/19 cholecalciferol (vitamin D3) 25 mcg (1,000 unit) tablet 25 mcg PO DAILY SUPPLEMENT 12/06/19 medroxyprogesterone 10 mg tablet 10 mg PO DAILY 12/06/19 sodium bicarbonate 325 mg tablet 325 mg PO DAILY SUPPLEMENT 12/06/19 acetaminophen 500 mg tablet 1,000 mg PO Q6H PRN PAIN 1-5 06/04/24 benzonatate 100 mg capsule 100 mg PO TID 06/04/24 bisacodyl 10 mg rectal suppository 10 mg KS DAILY PRN constipation 06/04/24 buprenorphine 7.5 mcg/hour weekly transdermal patch 1 patch topical MO 06/04/24 calcium 500 mg (as carbonate)-vitamin D3 5 mcg (200 unit) tablet (Oyster Shell Calcium-Vitamin D3) 2 tab PO DAILY 06/04/24 carbamide peroxide 6.5 % ear drops (Clearcanal Earwax Softener) 5 drp EACH EAR DAILY PRN EAR WAX BUILD UP 06/04/24 cranberry fruit 450 mg tablet (cranberry) 450 mg PO DAILY SUPPLEMENT 06/04/24 duloxetine 20 mg capsule,delayed release 20 mg PO DAILY 06/04/24 famotidine 40 mg tablet 40 mg PO DAILY 06/04/24 hydrocortisone 1 % topical cream (Ala-Dima) 1 applic topical BID PRN BILATERAL KNEE PAIN 06/04/24 magnesium hydroxide 400 mg/5 mL oral suspension (Dulcolax (magnesium hydroxide)) 30 ml PO DAILY PRN constipation 06/04/24 mineral oil (Fleet Mineral Oil enema) 118 ml KS DAILY PRN constipation 06/04/24 nystatin 100,000 unit/gram topical cream 1 applic topical TID SKIN IRRITATION 06/04/24 nystatin 100,000 unit/gram topical powder (Nyamyc) 1 applic topical TID SKIN IRRITATION 06/04/24 polyethylene glycol 3350 17 gram/dose oral powder (ClearLax) 17 g PO DAILY PRN constipation 06/04/24 trazodone 50 mg tablet 75 mg PO DAILY MAJOR DEPRESSIVE DISORDER 06/04/24 amoxicillin 875 mg-potassium clavulanate 125 mg tablet 1 tab PO Q12H #10 tabs 06/12/24 guaifenesin 1,200 mg tablet, extended release 12 hr (Mucus Relief ER) 1,200 mg PO BID #0 tabs 06/12/24 Hospital Course Operations None Procedures None Summary of Care Provided Minutes Spent on Discharge: 32 Weight / BMI Weight Weight: 103.1 kg Body Mass Index (BMI) 41.5 ABG / Lab / Microbiology Data 06/12/24 05:29 06/12/24 05:29 Laboratory: Laboratory Results - last 24 hr 06/12/24 05:29: WBC 8.1, RBC 3.91 L, Hgb 11.7 L, Hct 36.6 L, MCV 93.6, MCH 29.9, MCHC 32.0, RDW Std Deviation 51.8 H, RDW Coeff of Ge 15.1 H, Plt Count 507 H, MPV 9.3, Immature Gran % (Auto) 4.500 H, Neut % (Auto) 38.4 L, Lymph % (Auto) 44.4 H, Stone % (Auto) 7.7, Eos % (Auto) 4.5, Baso % (Auto) 0.5, Absolute Neuts (auto) 3.1, Absolute Lymphs (auto) 3.58, Nucleated RBC % 0, Sodium 140, Potassium 4.3, Chloride 111 H, Carbon Dioxide 18.7 L, Anion Gap 10, BUN 12, Creatinine 1.37 H, Estim Creat Clear Calc 42.39 L, Est GFR (MDRD) Non-Af 41 L, BUN/Creatinine Ratio 8.8 L, Glucose 91, Calcium 9.2 Microbiology: Microbiology 06/04/24 10:50 Urine Catheter - Catheter Urine Culture - Final Pseudomonas spp Proteus mirabilis Enterococcus faecalis Meth. resistant Staph. aureus 06/08/24 10:21 Sputum, Expectorated/Coughed Gram Stain - Final 06/08/24 10:21 Sputum, Expectorated/Coughed Respiratory Culture - Final Presumptive C albicans 06/04/24 10:20 Blood Culture (Wb) - Anticubital Left Blood Culture - Final No growth in 5 days. 06/04/24 11:19 Blood Culture (Wb) - Right Forearm Blood Culture - Final No growth in 5 days. 06/04/24 10:50 Urine Catheter - Lee Legionella Antigen - Final 06/04/24 10:50 Urine Catheter - Lee Streptococcus pneumoniae Antigen (M - Final Streptococcus pneumonia Ag 06/04/24 10:22 Mucosa - Nose SARS-CoV-2, Influenza & RSV (PCR) - Final Influenzae A D/C Instructions Discharge Diet: No restrictions DC O2, CPAP, BIPAP Needs Home O2 Discharge instructions: No Meaningful Use Info Meaningful Use Meaningful Use Diagnoses (Choose all that apply): None applicable Ischemic Stroke Statin Dosing Therapy Reference: STATIN DOSE THERAPY REFERENCE: * Patients > 75 years receive moderate or high dose statin therapy. * Patients 75 years or YOUNGER should receive HIGH intensity statin dose unless contraindicated. You will be required to document reason for non-treatment if statin daily dose does not meet guidelines. HIGH DOSE STATIN THERAPY DAILY Atorvastatin > than or = to 40 mg Rosuvastatin > than or = to 20 mg Amlodipine + Atorvastatin > than or = to 2.5/40 mg Ezetimibe + Simvastatin 10/80 mg Simvastatin 80mg Discharge Plan Admission Admit Date/Time: 06/04/24 13:43 Primary Reason for Your Visit: pneumonia Attending Provider: Pipo Bryant Primary Care Provider: Wang Díaz Consulting Providers: Mary Muniz; Aditya Rossi; Bean Dong Discharge Orders/Prescriptions Prescriptions: New guaifenesin [Mucus Relief ER] 1,200 mg Tablet Extended Release 12hr 1,200 mg PO BID Qty: 0 0RF amoxicillin-pot clavulanate 875-125 mg tablet 1 tab PO Q12H Qty: 10 0RF Continued bupropion HCl 300 mg tablet extended release 24 hr 300 mg PO DAILY aripiprazole 5 mg tablet 5 mg PO DAILY amlodipine 5 mg tablet 5 mg PO DAILY medroxyprogesterone 10 mg tablet 10 mg PO DAILY cholecalciferol (vitamin D3) 25 mcg (1,000 unit) tablet 25 mcg PO DAILY sodium bicarbonate 325 mg tablet 325 mg PO DAILY acetaminophen 500 mg tablet 1,000 mg PO Q6H PRN (Reason: PAIN 1-5) benzonatate 100 mg capsule 100 mg PO TID bisacodyl 10 mg suppository 10 mg KS DAILY PRN (Reason: constipation) Rx Instructions: ADMINISTER IF NO BM 8 HOURS AFTER MOM ADMINISTRATION. buprenorphine 7.5 mcg/hour patch weekly 1 patch topical MO cranberry 450 mg tablet 450 mg PO DAILY Rx Instructions: administer with a meal Clearcanal Earwax Softener 6.5 % drops 5 drp EACH EAR DAILY PRN (Reason: EAR WAX BUILD UP) famotidine 40 mg tablet 40 mg PO DAILY duloxetine 20 mg capsule,delayed release(DR/EC) 20 mg PO DAILY hydrocortisone [Ala-Dima] 1 % cream 1 applic topical BID PRN (Reason: BILATERAL KNEE PAIN) magnesium hydroxide [Dulcolax (magnesium hydroxide)] 400 mg/5 mL suspension 30 ml PO DAILY PRN (Reason: constipation) Rx Instructions: ADMINISTER ONCE DAILY IF NO BM IN 3 CONSECUTIVE DAYS polyethylene glycol 3350 [ClearLax] 17 gram/dose powder 17 g PO DAILY PRN (Reason: constipation) Rx Instructions: MIX 17 GRAMS WITH 8 OUNCES OF WATER OR JUICE AND DRINK IN THE MORNING nystatin [Nyamyc] 100,000 unit/gram powder 1 applic topical TID Rx Instructions: APPLY TO GLUTEAL FOLDS EVERY SHIFT nystatin 100,000 unit/gram cream 1 applic topical TID calcium carbonate-vitamin D3 [Oyster Shell Calcium-Vit D3] 500 mg-5 mcg (200 unit) tablet 2 tab PO DAILY trazodone 50 mg tablet 75 mg PO DAILY mineral oil [Fleet Mineral Oil] Enema 118 ml KS DAILY PRN (Reason: constipation) Rx Instructions: ADMINISTER IF NO BM 8 HOURS AFTER RECIEVING SUPPOSITORY. IF NO BM WITHIN 1 HOUR NOTIFY MD. discard any unused portion Discontinued lorazepam 0.5 mg tablet 0.5 mg PO BID oxycodone 10 mg tablet 10 mg PO Q6H PRN (Reason: moderate TO SEVERE pain ) Referrals / Follow Up: Wang Díaz MD [Primary Care Provider] - Within 2 Weeks Disposition Disposition (needs filled in before D/C Order can be placed): NonSkilled NH/Intermed Care Charges/Coding Visit Charges Inpatient E&M: 81808 Disch Hosp >30min
--- NOTE | 2024-06-12 15:24 | CASEMGMT ---
Patient is ready for discharge back to [facility]. Physicians will transport patient via cot. Plan: d/c back to [facility] under intermediate level of care. Physicians will transport patient via cot. Linda NOVAK
--- NOTE | 2024-06-12 15:46 | CASEMGMT ---
Discharge Planning Discharge orders, signed med list, and transport time sent to [facility]. Physicians will transport pt by cot at 6:30p. Nursing, SW, and pt updated. left for pts HC POA. Vinita Sanchez DC Planning Asst.
[2024-06-19 15:38] LABS: Pathologist Review Reviewed
== END 2024-06-12 19:35 | disposition intermediate care facility (04) | DRG 194 ==
LOC: ED 11:13 → PCU 13:46
PROVIDERS: Internal Medicine; Admitting Provider Internal Medicine; Emergency Provider Emergency Medicine; PCP Family Medicine
DX: J15.4 Pneumonia due to other streptococci (principal); Z68.41 Body mass index [BMI] 40.0-44.9, adult; N39.0 Urinary tract infection, site not specified; B96.5 Pseudomonas (aeruginosa) (mallei) (pseudomallei) as the cause of diseases classified elsewhere; F31.9 Bipolar disorder, unspecified; N18.32 Chronic kidney disease, stage 3b; I12.9 Hypertensive chronic kidney disease with stage 1 through stage 4 chronic kidney disease, or unspecified chronic kidney disease; J10.1 Influenza due to other identified influenza virus with other respiratory manifestations; K21.9 Gastro-esophageal reflux disease without esophagitis; E87.6 Hypokalemia; J98.4 Other disorders of lung; Z79.891 Long term (current) use of opiate analgesic; R09.02 Hypoxemia; B96.4 Proteus (mirabilis) (morganii) as the cause of diseases classified elsewhere; B37.9 Candidiasis, unspecified; E66.813 Obesity, class 3
CPT/HCPCS: 36415; 71045; 71275; 80048; 80053; 81001; 83605; 83735; 84100; 84484; 85025; 85027; 85610; 85730; 87040; 87070; 87077; 87086; 87088; 87184; 87186; 87205; 87449; 87631; 92526; 92610; 93005; 94640; 94667; 94668; 97110; 97162; 97166; 97530; 97535; 97802; 97803; 99285; Q9967; A4216; J0696

== ENCOUNTER → 2024-09-04 | Outpatient (CLI) | payer MEDICARE, MEDICAID, SELFPAY ==
--- NOTE | 2024-09-04 13:37 | ST.MBS ---
Modified Barium Swallow Patient Information Study Date: 09/04/24 Study Time: 12:55 Direct Billable Minutes: 88 Total Minutes procedure & reportin Diagnosis: PNA J18.9 Referring Physician: Janet Souza NP Reason for Referral: Pt attended study by herself. She denies difficulty swallowing liquids, but reported that she gets choked up on foods. Last summer, she reported choking on a hot dog. She reports multiple occurrences of PNA, including 2X this calendar year. Per her chart, she is on Regular textures / Thin liquid diet, no salt. Medical History: CKD, Osteoarthritis, Noninfective gastroenteritis and colitis, Bipolar disorder, Anxiety, Hx of falling, HTN - See hard chart for full PMH. Current Diet Ordered: Regular textures / Thin liquids Dentition: Natural Teeth and Missing Teeth Respiratory Status: Oxygenating on Room Air Penetration-Aspiration Scale Penetration-Aspiration Scale: OBJECTIVE ASSESSMENT OF SWALLOW FUNCTION (QUANTITATIVE ? PER TRIAL): PENETRATION / ASPIRATION SCALE (NELSON): 1 = does not enter airway 2 = enters airway/above vocal folds/ejected 3 = enters airway/above vocal folds/not ejected 4 = enters airway/contacts vocal folds/ejected 5 = enters airway/contacts vocal folds/not ejected 6 = enters airway/below vocal folds/ejected 7 = enters airway/below vocal folds/not ejected despite effort 8 = enters airway/below vocal folds/no effort VIDEOFLOROSCOPIC SCALE SCORE (NELSON): Grade I = aspiration of material that has penetrated into the laryngeal vestibule, intact cough reflex Grade II = aspiration < 10 % of the bolus, intact cough reflex Grade III = aspiration of < 10 % of the bolus, reduced cough reflex or aspiration of > 10 % of the bolus, intact cough reflex Grade IV = aspiration of > 10 % of the bolus, reduced cough reflex Penetration-Aspiration Scale Score Thin Liquid via teaspoon: Result: 1= does not enter airway Thin Liquid via teaspoon Trial 2: Result: 1= does not enter airway Thin Liquid via large single sip: cup: Result: 2= enter airway/above vocal folds/ejected Constantine Thick Liquid via small single sip: cup: Result: 1= does not enter airway Pudding via teaspoon: Result: 1= does not enter airway Comment: Esophageal screen - Retention in the middle and lower esophagus. Thin Liquid via single sip: straw: Result: 2= enter airway/above vocal folds/ejected Comment: Esophageal screen - Liquid wash somewhat cleared pudding retention. Thin Liquid via single sip: straw Trial 2: Result: 2= enter airway/above vocal folds/ejected Comment: Esophageal screen - Second liquid wash mostly cleared pudding retention. 1/2 Cookie: Result: 1= does not enter airway Comment: Esophageal screen - Retention in the middle and lower esophagus. Thin Liquid via single sip: straw Effortful swallow: Result: 2= enter airway/above vocal folds/ejected Comment: Esophageal screen - Two liquid washes mostly cleared esophageal retention of cookie through the UES. Oral Phase Labial Seal: No Labial Escape Tongue Control During Bolus Hold: Posterior escape of greater than half of bolus Bolus Preparation/Mastication: Disorganized chewing/mashing with solid pieces of bolus unchewed (small pieces of cookie not fully chewed) Bolus Transport/Lingual Motion: Delayed initiation of tongue motion Oral Residue: Residue collection on oral structures Pharyngeal Phase Initiation of Pharyngeal Swallow: Bolus head at posterior laryngeal surgace of epiglottis Soft Palate Elevation: Trace column of contrast/air between soft palate and pharyngeal wall Laryngeal Elevation: Comp. Superior move thyroid cart w/comp. apprx arytenoid cart-epig pet Anterior Hyoid Excursion: Partial anterior movement Epiglottic Movement: Complete inversion Laryngeal Vestibule Closure at Height of Swallow: Incomplete; narrow column of air/contrast in laryngeal vestibule Pharyngeal Stripping Wave: Present - complete Pharyngoesophageal Segment Opening: Parital distension and partial duration; parital obstruction of flow Tongue Base Retraction: Narrow column of contrast between tongue base & post. pharyngeal wall Pharyngeal Residue: Trace residue within or on pharyngeal structures Esophageal Phase Esophageal Clearance: Esophageal retention w/ retrograde flow through pharyngoesophageal seg Diagnosis/Impression Diagnosis: Mild oropharyngeal dysphagia R13.12; Esophageal dysphagia R13.14 Impression: The oral phase is primarily marked by... -Decreased bolus control w/ premature posterior loss of >1/2 of various consistencies to the posterior surface of the epiglottis prior to swallow onset. -Decreased mastication w/ very small pieces of cookie un-chewed, pt did take her time and cookie was almost fully chewed w/ extended time. The pharyngeal phase is primarily marked by... -Mild delay in swallow onset. -Decreased anterior hyoid excursion w/ laryngeal penetration of liquids during the swallow; however, complete laryngeal elevation resulted in ejection of penetration barium from the laryngeal vestibule as the swallow was completed. No aspiration was observed. The esophageal phase is primarily marked by... -CP bar, which impacted clearance of portion of thin liquid boluses resulting in retention in the UES w/ retrograde flow to the pyriform sinuses. -Retention of cookie and pudding in the middle and lower esophagus, which mostly cleared w/ 2 liquid washes. Recommendations Diet: Easy to Chew Textures and Thin Liquids Compensatory Strategies: Small Bites, Small Sips, Slow Rate, Alternate bites/solids and sips/liquids (2 sips after every bite), Sitting upright and Remain sitting upright for 30 minutes after PO intake Supervision: Distant Supervision Recommend Repeat Modified Barium Swallow: No Need for Skilled Speech Therapy Services: Yes Comment: -Train the patient in use of strategies to decrease risk for reflux aspiration. -Train the patient in oropharyngeal exercise program to improve bolus control, swallow onset, airway closure, and TB retraction (lingual resistance, Eladio, Tita). Recommended Referrals: GI Consult Education Completed: 1. Described result of evaluation., 2. Pt understands evaluation & agrees with goals and treatment plan. and 7. Pt requires further education on strategies & risks. Status Active ST Patient: Active Contact Information [facility] Speech Therapy:: Tati Fountain M.A. [employer]ATIONSHIP MANAGER? Speech-Language Pathologist?? [facility] [address] [place] [address]? [email or web address]?? [phone]
== END | disposition home or self-care (01) ==
LOC: RAD 12:50
PROVIDERS: PCP Family Medicine; Referring Provider Family Medicine
DX: J69.0 Pneumonitis due to inhalation of food and vomit (principal)
CPT/HCPCS: 74230; 92611